=== PATIENT | female | born 1955 | race Caucasian/White ===

== ENCOUNTER 2019-07-06 09:43 | Outpatient (CLI) | payer OTHER, SELFPAY ==
[2019-07-06 10:16] LABS: Alanine Aminotransferase 27 U/L (4-35); Albumin Level 4.5 g/dL (3.5-5.1); Alkaline Phosphatase 62 U/L (38-126); Aspartate Amino Transferase 30 U/L (14-36); Bilirubin,Total 0.6 mg/dL (0.2-1.3); Blood Urea Nitrogen 17 mg/dL (7-17); Calcium 9.7 mg/dL (8.4-10.2); Carbon Dioxide 30 mmol/L (22-30); Chloride 98 mmol/L (98-107); Cholesterol 190 mg/dL (0-200); Estimated Glomerular Filt Rate > 60; Glucose 95 mg/dL (65-105); HDL Direct 64 mg/dL; Potassium 4.1 mmol/L (3.4-5.0); Sodium 139 mmol/L (137-145); Triglycerides 80 mg/dL (<150)
[2019-07-06 10:27] LABS: LDL Cholesterol Direct 98 mg/dL
[2019-07-06 10:46] LABS: Thyroid Stimulating Hormone 0.654 uIU/mL (0.465-4.680)
[2019-07-06 11:10] LABS: Vitamin D 25 Hydroxy 36.1 ng/mL
== END 2019-07-06 09:44 | disposition home or self-care (01) ==
PROVIDERS: PCP Internal Medicine; Visit Provider Internal Medicine
DX: E78.2 Mixed hyperlipidemia (principal); E03.9 Hypothyroidism, unspecified; E55.9 Vitamin D deficiency, unspecified
CPT/HCPCS: 36415; 80053; 80061; 82306; 84443

== ENCOUNTER 2019-11-14 13:02 | Outpatient (CLI) | payer OTHER, SELFPAY ==
--- NOTE | ~2019-11-14 | MM_ITS ---
EXAMINATION: MM screening david BI w alvin HISTORY: Screening mammogram TECHNIQUE: Craniocaudal and mediolateral oblique 3-D tomosynthesis images were obtained and synthetic 2-D images were generated. CAD analysis was submitted and interpreted. COMPARISON: 10/03/2018, 10/09/2017, 09/24/2016 bilateral digital screening mammogram examinations BREAST PARENCHYMAL COMPOSITION: There are scattered areas of fibroglandular density. FINDINGS: There is no evidence of suspicious mass, calcification, or architectural distortion to sugg est malignancy in either breast. There has been no suspicious interval change. IMPRESSION: 1. No mammographic evidence of malignancy. 2. Recommend routine screening mammography in one year. BI-RADS Category 1: Negative Reviewed, dictated and finalized at location A.
--- NOTE | ~2019-11-14 | DEXA_ITS ---
Bone Density Report Name: Patricia Olson Age: 64 Sex: Female Ethnicity: White Date of : 1955 Indication: postmenopausal; height loss; cancer; Referring Provider: PHYSICIAN NOT ON STAFF Study: Bone densitometry was performed. Exam Date: November 14, 2019 Accession number: [id number] Bone Density: Region BMD T-score Z-score Classification AP Spine (L1-L4) 0.791 -2.3 -0.5 Osteopenia Femoral Neck (Left) 0.650 -1.8 -0.3 Osteopenia Total Hip (Left) 0.831 -0.9 0.3 Normal Total Hip Bilateral Avg 0.842 -0.8 0.4 Normal Femoral Neck (Right) 0.652 -1.8 -0.2 Osteopenia Total Hip (Right) 0.852 -0.7 0.5 Normal World Health Organization criteria for BMD impression classify patients as: Normal (T-score at or above -1.0), Osteopenia (T-score between -1.0 and -2.5), or Osteoporosis (T-score at or below -2.5). 10-year Fracture Risk: FRAX not reported because: Treated for osteoporosis Clinical Information Provided by Patient: Is being treated for osteoporosis Has used the following medications: Fosamax (i.e. alendronate), Vitamin D, Calcium Has the following medical conditions: Cancer Patient maximum height was 63.5 Menopause Age: 49 Onset of menses at age 12 Number of children 0 Impression: The patient has low bone mass, based on the Total Spine T-score. Discussion: It is important to ask patients whether they are taking their medications and to encourage continued and appropriate compliance with their osteoporosis therapies to reduce fracture risk. It is also important to review their risk factors and encourage appropriate calcium and vitamin D intakes, exercise, fall prevention and other lifestyle measures. Follow-Up: Consider a repeat BMD and Vertebral Fracture Assessment (VFA) exam in 2 years or sooner if medically necessary, to reassess this patient's status. Reported by: ARA on 11/14/2019 1:36:00 PM. Reviewed, dictated and finalized at location ATuyet FRAZIER
== END 2019-11-14 13:03 | disposition home or self-care (01) ==
PROVIDERS: PCP Internal Medicine
DX: E28.39 Other primary ovarian failure (principal); Z12.31 Encounter for screening mammogram for malignant neoplasm of breast; M85.89 Other specified disorders of bone density and structure, multiple sites
CPT/HCPCS: 77063; 77067; 77080

== ENCOUNTER 2020-02-23 01:17 | Outpatient (CLI) | payer OTHER, SELFPAY ==
[2020-02-23 16:30] LABS: SARS-CoV-2 RNA PCR Negative
== END 2020-02-23 01:18 | disposition home or self-care (01) ==
PROVIDERS: PCP Internal Medicine; Visit Provider Internal Medicine Gastroenterology
DX: Z01.812 Encounter for preprocedural laboratory examination (principal); Z20.828 Contact with and (suspected) exposure to other viral communicable diseases
CPT/HCPCS: 87635; C9803; U0003

== ENCOUNTER 2020-02-26 01:34 | Day surgery (SDC) | payer OTHER, SELFPAY ==
[2020-02-15 14:27] VITALS: BMI 28.0
[2020-02-26 10:18] VITALS: BP 143/88; PULSE 83; RESP 20; TEMP 36.6; O2SAT 100
[2020-02-26] MEDS: LACTATED RINGERS 1,000 ML 150 ML IV CONT (10:26)
--- NOTE | 2020-02-26 10:47 | WPDANESEPPF ---
Anes - Initial Pre Proc Eval Procedure: Operation Date: 02/26/20 11:30 Proposed Procedures p Screening Colonoscopy - Sebas Santos DO Date/Time: 02/26/20 10:47 Surgeon: Sebas Santos DO Pre Op Diagnosis: Neoplasm Screening Patient Data Age: 64 Gender: F Height: 5 ft 3 in Weight: 70.3 kg Last Vital Signs Temp 97.8 F 02/26/20 10:18 Pulse 83 02/26/20 10:18 Resp 20 02/26/20 10:18 BP 143/88 H 02/26/20 10:18 Pulse Ox 100 02/26/20 10:18 Allergies Allergy/AdvReac Type Severity Reaction Status Date / Time No Known Allergies Allergy Unknown Verified 02/26/20 10:17 Home Medications Medication Instructions Recorded Confirmed Type Lacto.acidophilus-Bif.animalis 10 1 cap PO DAILY 07/05/19 02/15/20 History billion cell capsule calcium carbonate 500 mg calcium 500 mg PO DAILY 07/05/19 02/15/20 History (1,250 mg) capsule cholecalciferol (vitamin D3) 125 5,000 unit PO DAILY 07/05/19 02/15/20 History mcg (5,000 unit) capsule omega-3 fatty acids 1,000 mg 1,000 mg PO BID 07/05/19 02/15/20 History capsule levothyroxine 88 mcg tablet 88 mcg PO DAILY #90 tablet 12/05/19 02/15/20 Rx rosuvastatin 10 mg tablet 10 mg PO .COMPLEX #75 tablet 12/05/19 02/15/20 Rx Patient hx anesthesia problems: none Family hx anesthesia problems: none PMFSH Past Medical History Medical History (Updated 02/26/20 @ 10:46 by Moise Heath MD) Acquired hypothyroidism Hx of bronchogenic malignancy Mixed hyperlipidemia Premature ventricular contraction Family History Family History (Updated 09/12/18 @ 14:53 by DOCTOR UNKNOWN) Grandparent Family history of rheumatoid arthritis Family history of malignant neoplasm of breast Father Hypertension Sibling Carcinoma of colon Social History Social History Smoking status: Never smoker Alcohol intake: never Substance use type: does not use Living arrangements: alone Gender identity (if verbalized by the patient): Female Spiritual care concerns: No Anes - Eval Final PreProcedure Day of Procedure 02/26/20 10:47 Patient weight: normal Heart: regular rate and rhythm Lungs: clear to auscultation Airway: Mallampati scale class II Neurological: alert and oriented Last oral intake: >/= 8 hours ASA classification: III Emergent: no Anesthetic plan: proceed Anesthesia type and monitoring: general GIVS and standard monitoring Informed Consent: The patient's anesthetic plan and its attendant risks and benefits were discussed with the patient/family/POA. Questions were solicited and answers provided to the satisfaction of the patient/family/POA.
--- NOTE | 2020-02-26 11:33 | P.HP_ITS ---
H&P: HPI History of Present Illness Date/Time: 02/26/20 11:33 Chief complaint: Neoplasm Screening Narrative: Reason for visit colonoscopy. This very pleasant lady seen in consultation request of the primary physician. Impression: Screening and surveillance colonoscopy. The patient's history adenomatous colon polyps and a family history of colorectal cancer. Dyslipidemia. Hypothyroidism. History of carcinoid lung cancer status post pneumonectomy. Recommendation: Colonoscopy. History: This very pleasant lady's here for screening colonoscopy. She has history adenomatous colon polyps and family history colorectal cancer. GI review syst ems is negative. Physical examination: General: very pleasant patient in no acute distress. HEENT: Head was normocephalic sclerae is clear mouth without masses neck was supple. Heart: Rate rhythm regular without S3 or S4. Lungs: CTA. Abdomen: Soft with no guarding or rigidity. Bowel sounds were active. Neurologic: Cranial nerves 2 through 12 intact. No focal defects. No clonus. Musculoskeletal system: Revealed no joint tenderness or swelling no muscle atrophy. Extremities: Reveal no significant edema. Skin: Warm and dry with normal turgor. Mental status: intact. Patient is alert and oriented. Review of Systems Review of Systems: All systems reviewed & are unremarkable except as noted in HPI and below PMFSH Past Medical History Medical History (Updated 02/26/20 @ 10:46 by Moise Heath MD) Acquired hypothyroidism Hx of bronchogenic malignancy Mixed hyperlipidemia Premature ventricular contraction Family History Family History (Updated 09/12/18 @ 14:53 by DOCTOR UNKNOWN) Grandparent Family history of rheumatoid arthritis Family history of malignant neoplasm of breast Father Hypertension Sibling Carcinoma of colon Social History Social History Smoking status: Never smoker Alcohol intake: never Substance use type: does not use Living arrangements: alone Gender identity (if verbalized by the patient): Female Spiritual care concerns: No Meds Home Medications and Allergies Home Medications Medication Instructions Recorded Confirmed Type Lacto.acidophilus-Bif.animalis 10 1 cap PO DAILY 07/05/19 02/15/20 History billion cell capsule calcium carbonate 500 mg calcium 500 mg PO DAILY 07/05/19 02/15/20 History (1,250 mg) capsule cholecalciferol (vitamin D3) 125 5,000 unit PO DAILY 07/05/19 02/15/20 History mcg (5,000 unit) capsule omega-3 fatty acids 1,000 mg 1,000 mg PO BID 07/05/19 02/15/20 History capsule levothyroxine 88 mcg tablet 88 mcg PO DAILY #90 tablet 12/05/19 02/15/20 Rx rosuvastatin 10 mg tablet 10 mg PO .COMPLEX #75 tablet 12/05/19 02/15/20 Rx Allergies Allergy/AdvReac Type Severity Reaction Status Date / Time No Known Allergies Allergy Unknown Verified 02/26/20 10:17 Vital Signs Vital Signs - 24 hr 02/26/20 10:18 Temperature 36.6 C Pulse Rate 83 Respiratory Rate 20 Blood Pressure 143/88 H Pulse Oximetry 100
[2020-02-26 11:54] VITALS: BP 96/62; PULSE 66; RESP 17; O2SAT 97
[2020-02-26 12:04] VITALS: BP 117/66; PULSE 62; RESP 21; O2SAT 98
[2020-02-26 12:14] VITALS: BP 116/77; PULSE 57; RESP 12; O2SAT 100
== END 2020-02-26 12:30 | disposition home or self-care (01) ==
PROVIDERS: PCP Internal Medicine; Visit Provider Internal Medicine Gastroenterology
PROC: 0DJD8ZZ Inspection of Lower Intestinal Tract, Via Natural or Artificial Opening Endoscopic (ICD-10-PCS; CPT 45378; principal; 2020-02-26 11:30)
DX: Z12.11 Encounter for screening for malignant neoplasm of colon (principal); K63.5 Polyp of colon; K64.8 Other hemorrhoids; Z80.0 Family history of malignant neoplasm of digestive organs; E78.2 Mixed hyperlipidemia; E03.9 Hypothyroidism, unspecified; I49.3 Ventricular premature depolarization; Z85.118 Personal history of other malignant neoplasm of bronchus and lung; Z90.2 Acquired absence of lung [part of]
CPT/HCPCS: 45380; 88305; J2704; J7120

== ENCOUNTER 2020-06-20 11:52 | Outpatient (CLI) | payer MEDICARE, SELFPAY ==
[2020-06-20 12:10] LABS: Basophils Percent Auto 0.5 % (0.2-1.2); Eosinophils Absolute Auto 0.2 K/mm3 (0-0.3); Eosinophils Percent Auto 2.9 % (0-4.4); Hematocrit 43.5 % (37.0-47.0); Hemoglobin 14.3 g/dL (12.0-15.0); Immature Granulocyte Absolute 0.02 K/mm3 (0.00-0.031); Immature Granulocyte Percent A 0.3 % (0-0.5); Lymphocytes Absolute Auto 2.34 K/mm3 (0.9-3.2); Lymphocytes Percent Auto 37.8 % (18.3-44.2); Mean Corpuscular HGB Conc 32.9 g/dl (32-36); Mean Corpuscular Hemoglobin 30.6 pg (26-34); Mean Corpuscular Volume 93.1 fl (80-100); Mean Platelet Volume 10.6 fl (7.4-10.4); Monocytes Absolute Auto 0.4 K/mm3 (0.1-0.6); Monocytes Percent Auto 6.1 % (2.6-8.5); Neutrophils Absolute Auto 3.2 K/mm3 (1.3-6.7); Neutrophils Percent Auto 52.4 % (45.5-73.1); Platelet Count Result 214 k/mm3 (150-375); Red Blood Count 4.67 M/mm3 (4.2-5.4); Red Cell Distribution Width 12.3 % (11.5-14.5); White Blood Count 6.2 K/mm3 (4.5-10.0)
[2020-06-20 12:26] LABS: Alanine Aminotransferase 34 U/L (4-35); Albumin Level 4.4 g/dL (3.5-5.1); Alkaline Phosphatase 63 U/L (38-126); Anion Gap 4 mmol/L (8-16); Aspartate Amino Transferase 38 U/L (14-36); Bilirubin,Total 0.6 mg/dL (0.2-1.3); Blood Urea Nitrogen 16 mg/dL (7-17); Calcium 9.5 mg/dL (8.4-10.2); Carbon Dioxide 31 mmol/L (22-30); Chloride 101 mmol/L (98-107); Cholesterol 184 mg/dL (0-200); Estimated Glomerular Filt Rate > 60; Glucose 83 mg/dL (65-105); HDL Direct 57 mg/dL; Potassium 4.3 mmol/L (3.4-5.0); Sodium 136 mmol/L (137-145); Triglycerides 109 mg/dL (<150)
[2020-06-20 12:37] LABS: LDL Cholesterol Direct 93 mg/dL
[2020-06-20 12:55] LABS: Thyroid Stimulating Hormone 0.814 uIU/mL (0.465-4.680)
[2020-06-20 13:06] LABS: Vitamin D 25 Hydroxy 45.1 ng/mL
== END 2020-06-20 11:53 | disposition home or self-care (01) ==
PROVIDERS: Family Provider Internal Medicine; PCP Internal Medicine; Visit Provider Internal Medicine
DX: E03.9 Hypothyroidism, unspecified (principal); E55.9 Vitamin D deficiency, unspecified; E78.2 Mixed hyperlipidemia; I49.3 Ventricular premature depolarization
CPT/HCPCS: 36415; 80053; 80061; 82306; 84443; 85025

== ENCOUNTER 2020-11-15 09:59 | Outpatient (CLI) | payer MEDICARE, SELFPAY ==
--- NOTE | ~2020-11-15 | MM_ITS ---
EXAMINATION: MM screening david BI w alvin HISTORY: Screening mammogram TECHNIQUE: Craniocaudal and mediolateral oblique 3-D tomosynthesis images were obtained and synthetic 2-D images were generated. CAD analysis was submitted and interpreted. COMPARISON: 11/14/2019, 10/03/2018, 09/29/2017 bilateral digital screening mammogram examinations BREAST PARENCHYMAL COMPOSITION: There are scattered areas of fibroglandular density. FINDINGS: There is no evidence of suspicious mass, calcification, or architectural distortion to sugg est malignancy in either breast. There has been no suspicious interval change. IMPRESSION: 1. No mammographic evidence of malignancy. 2. Recommend routine screening mammography in one year. BI-RADS Category 1: Negative Reviewed, dictated and finalized at location A.
== END 2020-11-15 10:00 | disposition home or self-care (01) ==
LOC: ANHIMG 10:02
PROVIDERS: PCP Internal Medicine; Visit Provider Internal Medicine
DX: Z12.31 Encounter for screening mammogram for malignant neoplasm of breast (principal)
CPT/HCPCS: 77063; 77067

== ENCOUNTER → 2020-12-10 10:41 | Outpatient (REF) | payer MEDICARE, SELFPAY | LOC: ANHLAB 10:41 | PROVIDERS: PCP Internal Medicine; Visit Provider Nurse Practitioner | DX: D49.2 Neoplasm of unspecified behavior of bone, soft tissue, and skin (principal) | CPT/HCPCS: 88305; 88342 ==

== ENCOUNTER 2021-06-14 10:49 | Outpatient (CLI) | payer MEDICARE, SELFPAY ==
[2021-06-14 11:13] LABS: Basophils Absolute Auto 0.1 K/mm3 (0.0-0.1); Basophils Percent Auto 0.7 % (0.2-1.2); Eosinophils Absolute Auto 0.2 K/mm3 (0-0.3); Eosinophils Percent Auto 3.3 % (0-4.4); Hematocrit 42.6 % (37.0-47.0); Hemoglobin 13.7 g/dL (12.0-15.0); Immature Granulocyte Absolute 0.02 K/mm3 (0.00-0.031); Immature Granulocyte Percent A 0.3 % (0-0.5); Lymphocytes Absolute Auto 2.24 K/mm3 (0.9-3.2); Lymphocytes Percent Auto 32.2 % (18.3-44.2); Mean Corpuscular HGB Conc 32.2 g/dl (32-36); Mean Corpuscular Hemoglobin 30.5 pg (26-34); Mean Corpuscular Volume 94.9 fl (80-100); Mean Platelet Volume 11.2 fl (7.4-10.4); Monocytes Absolute Auto 0.5 K/mm3 (0.1-0.6); Monocytes Percent Auto 6.9 % (2.6-8.5); Neutrophils Absolute Auto 3.9 K/mm3 (1.3-6.7); Neutrophils Percent Auto 56.6 % (45.5-73.1); Platelet Count Result 220 k/mm3 (150-375); Red Blood Count 4.49 M/mm3 (4.2-5.4)
[2021-06-14 11:20] LABS: Alanine Aminotransferase 32 U/L (4-35); Albumin Level 4.6 g/dL (3.5-5.1); Alkaline Phosphatase 62 U/L (38-126); Anion Gap 6 mmol/L (8-16); Aspartate Amino Transferase 34 U/L (14-36); Bilirubin,Total 0.6 mg/dL (0.2-1.3); Blood Urea Nitrogen 15 mg/dL (7-17); Calcium 9.5 mg/dL (8.4-10.2); Carbon Dioxide 29 mmol/L (22-30); Chloride 104 mmol/L (98-107); Cholesterol 195 mg/dL (0-200); Estimated Glomerular Filt Rate > 60; Glucose 92 mg/dL (65-110); HDL Direct 69 mg/dL; Potassium 4.2 mmol/L (3.4-5.0); Sodium 139 mmol/L (137-145); Triglycerides 60 mg/dL (<150)
[2021-06-14 11:21] LABS: Add Urine Microscopic? NO; Appearance Urine Clear (Clear); Bilirubin Urine Negative (Negative); Blood Urine Negative (Negative); Color Urine Colorless (Yellow); Glucose Urine UA Negative (Negative); Ketones Urine Negative (Negative); Leukocyte Esterase Ur Negative LEU/UL (NEGATIVE); Nitrate Urine Negative (Negative); Protein Urine Negative (Negative); Urobilinogen Urine Negative mg/dL (<2.0)
[2021-06-14 11:22] LABS: Specific Grav Ur 1.004 (1.001-1.035)
[2021-06-14 11:31] LABS: LDL Cholesterol Direct 97 mg/dL
[2021-06-14 12:26] LABS: Vitamin D 25 Hydroxy 54.2 ng/mL
== END 2021-06-14 10:50 | disposition home or self-care (01) ==
PROVIDERS: PCP Internal Medicine; Visit Provider Internal Medicine
DX: E03.9 Hypothyroidism, unspecified (principal); E78.2 Mixed hyperlipidemia; E55.9 Vitamin D deficiency, unspecified
CPT/HCPCS: 36415; 80053; 80061; 81003; 82306; 84443; 85025

== ENCOUNTER 2021-12-24 14:19 | Outpatient (CLI) | payer MEDICARE, SELFPAY ==
--- NOTE | ~2021-12-24 | DEXA_ITS ---
Bone Density Report Name: JAVIER TSE I Age: 66 Sex: Female Ethnicity: White Date of : 1955 Indication: osteopenia; height loss; postmenopausal Referring Provider: UNKNOWN, UNKNOWN Study: Bone densitometry was performed. Exam Date: December 24, 2021 Accession number: [id number] Bone Density: Region BMD T-score Z-score Classification AP Spine(L1-L4) 0.821 -2.1 -0.1 Osteopenia Femoral Neck (Left) 0.635 -1.9 -0.3 Osteopenia Total Hip (Left) 0.827 -0.9 0.4 Normal Femoral Neck (Right) 0.688 -1.4 0.2 Osteopenia Total Hip (Right) 0.837 -0.9 0.5 Normal Total Hip Mean 0.832 -0.9 0.5 Normal World Health Organization criteria for BMD impression classify patients as: Normal (T-score at or above -1.0), Osteopenia (T-score between -1.0 and -2.5), or Osteoporosis (T-score at or below -2.5). 10-year Fracture Risk(1): Major Osteoporotic Fracture 11% Hip Fracture 1.7% Reported Risk Factors: [place] (), Neck BMD=0.635, BMI=28.4 (1) FRAX(R) Version 3.08. Fracture probability calculated for an untreated patient. Fracture probability may be lower if the patient has received treatment. Previous Exams: Region Exam Age BMD T-score BMD Change BMD Change Date g/cm2 vs Baseline vs Previous AP Spine (L1-L4) 12/24/2021 66 0.821 -2.1 0.030 (3.8%)* 0.030 (3.8%)* 11/14/2019 64 0.791 -2.3 Total Hip(Left) 12/24/2021 66 0.827 -0.9 -0.004 (-0.5%) -0.004 (-0.5%) 11/14/2019 64 0.831 -0.9 Total Hip(Right) 12/24/2021 66 0.837 -0.9 -0.014 (-1.7%) -0.014 (-1.7%) 11/14/2019 64 0.852 -0.7 *Denotes significance at 95% confidence level, LSC for AP Spine = 0.022 g/cm2, LSC for Total Hip = 0.027 g/cm2 Clinical Information Provided by Patient: Has used the following medications: Fosamax (i.e. alendronate) Patient maximum height was 64 Menopause Age: 49 Onset of menses at age 12 Number of children 0 Impression: The patient has low bone mass, based on the Total Spine T-score. The patient has an estimated ten-year risk of hip fracture of 1.7% and an estimated ten-year risk of major fracture of 11%, based on the WHO FRAX algorithm. No significant bone loss was observed. Discussion: BONE DENSITY IS LOW AT ONE OR MORE SKELETAL SITES. This patient's lowest T-score is low at one or more skeletal sites. It meets the World Health Organization's (WHO) criteria for ?low bone mass? (T-score between -1.0 and -2.5). The patient's
--- NOTE | ~2021-12-24 | MM_ITS ---
EXAMINATION: MM screening david BI w alvin HISTORY: Screening TECHNIQUE: Craniocaudal and mediolateral oblique 3-D tomosynthesis images were obtained and synthetic 2-D images were generated. CAD analysis was submitted and interpreted. COMPARISON: Comparison to multiple prior studies sequentially, with oldest reviewed study dated 09/16. BREAST PARENCHYMAL COMPOSITION: There are scattered areas of fibroglandular density. FINDINGS: There is no evidence of suspicious mass, calcification, or architectural distortion to sugg est malignancy in either breast. There has been no suspicious interval change. IMPRESSION: 1. No mammographic evidence of malignancy. 2. Recommend routine screening mammography in one year. BI-RADS Category 1: Negative Reviewed, dictated and finalized at location A.
== END 2021-12-24 14:20 | disposition home or self-care (01) ==
PROVIDERS: PCP Family Medicine
DX: Z12.31 Encounter for screening mammogram for malignant neoplasm of breast (principal); Z78.0 Asymptomatic menopausal state; M85.89 Other specified disorders of bone density and structure, multiple sites
CPT/HCPCS: 77063; 77067; 77080

== ENCOUNTER 2022-06-29 08:43 | Outpatient (CLI) | payer MEDICARE, SELFPAY ==
[2022-06-29 09:59] LABS: Basophils Absolute Auto 0.1 K/mm3 (0.0-0.1); Basophils Percent Auto 0.9 % (0.2-1.2); Eosinophils Absolute Auto 0.2 K/mm3 (0-0.3); Eosinophils Percent Auto 4.2 % (0-4.4); Hematocrit 44.9 % (37.0-47.0); Hemoglobin 14.3 g/dL (12.0-15.0); Immature Granulocyte Absolute 0.02 K/mm3 (0.00-0.031); Immature Granulocyte Percent A 0.4 % (0-0.5); Lymphocytes Absolute Auto 1.91 K/mm3 (0.9-3.2); Lymphocytes Percent Auto 34.5 % (18.3-44.2); Mean Corpuscular HGB Conc 31.8 g/dl (32-36); Mean Corpuscular Hemoglobin 30.4 pg (26-34); Mean Corpuscular Volume 95.5 fl (80-100); Mean Platelet Volume 11.1 fl (7.4-10.4); Monocytes Absolute Auto 0.3 K/mm3 (0.1-0.6); Monocytes Percent Auto 5.6 % (2.6-8.5); Neutrophils Percent Auto 54.4 % (45.5-73.1); Platelet Count Result 250 k/mm3 (150-375); Red Cell Distribution Width 13.2 % (11.5-14.5); White Blood Count 5.5 K/mm3 (4.5-10.0)
[2022-06-29 10:17] LABS: Alanine Aminotransferase 38 U/L (6-35); Albumin Level 4.3 g/dL (3.5-5.1); Alkaline Phosphatase 64 U/L (38-126); Anion Gap 5 mmol/L (8-16); Aspartate Amino Transferase 38 U/L (14-36); Bilirubin,Total 0.4 mg/dL (0.2-1.3); Blood Urea Nitrogen 13 mg/dL (7-17); Carbon Dioxide 32 mmol/L (22-30); Chloride 104 mmol/L (98-107); Cholesterol 198 mg/dL (0-200); Estimated Glomerular Filt Rate > 60; Glucose 95 mg/dL (65-110); HDL Direct 59 mg/dL; Potassium 4.1 mmol/L (3.4-5.0); Sodium 141 mmol/L (137-145); Triglycerides 77 mg/dL (<150)
[2022-06-29 10:29] LABS: LDL Cholesterol Direct 94 mg/dL
[2022-06-29 10:35] LABS: Vitamin D 25 Hydroxy 54.8 ng/mL
== END 2022-06-29 08:44 | disposition home or self-care (01) ==
LOC: ANHLAB 08:44
PROVIDERS: PCP Family Medicine; Visit Provider Nurse Practitioner
DX: E03.9 Hypothyroidism, unspecified (principal); E55.9 Vitamin D deficiency, unspecified; E78.2 Mixed hyperlipidemia; Z13.29 Encounter for screening for other suspected endocrine disorder
CPT/HCPCS: 36415; 80053; 80061; 82306; 84443; 85025

== ENCOUNTER 2022-08-25 08:28 | Outpatient (CLI) | payer MEDICARE, SELFPAY ==
--- NOTE | 2022-09-15 15:25 | WPDSLEEPSTUD ---
Sleep Study Date of Study: 08/25/22 Ordering Provider: Rhea Cotter DO Interpreting Physician: Rhea Cotter DO Sleep Study Type: Split Polysomnogram Height: 1.57 m Weight: 66.678 kg Body Mass Index: 26.9 Neck Circumference (inches): 14.5 [place]: 11 Reason for Sleep Study Sleep-maintenance insomnia, daytime hypersomnia Sleep History The patient is a 67-year-old female with hypertension, hypothyroidism, hyperlipidemia, PVCs, history of bronchogenic malignancy and insomnia that had a sleep study ordered for evaluation of sleep apnea. The patient denies awakening from sleep short of breath. She rarely awakens at night with heartburn, belching or cough. She occasionally snores. She occasionally has trouble sleeping when she has a cold. She denies waking up gasping for air throughout the night. She rarely has breathing problems at night observed by herself or others. He rarely sweats excessively at night. She denies having heart palpitations or irregular heartbeats during the night. She occasionally falls asleep during the day but never while driving. She denies cataplexy. She rarely has trouble at school or work due to sleepiness. She rarely feels unable to move while waking up or falling asleep. She occasionally experiences vivid dreamlike scenes upon awakening or falling asleep. She denies feeling afraid going to sleep. She rarely has nightmares. She rarely remembers her dreams. She occasionally has thoughts racing through her mind. She occasionally feels sad or depressed. She occasionally has anxiety. She occasionally has muscular tension. She occasionally notices parts of her body jerk. She occasionally has crawling and aching feelings in her legs and occasionally has leg pain during the night. She denies grinding her teeth during sleep and denies awakening with morning jaw pain. She is occasionally bothered by pain during the day and occasionally awakened by pain during the night. She frequently wakes up feeling stiff in the morning. She occasionally wakes up with sore or achy muscles. She occasionally wakes up with pain in the neck, spine or other joints. She goes to bed between 10 30-11 p.m. on both weekdays and weekends. It can take her anywhere from 30 minutes to a few hours to fall asleep. She wakes up 1-3 times throughout the night for unknown reasons. It can take her 1-2 hours to fall back asleep. She wakes up between 530-6 a.m. on both weekdays and weekends. She will stay in bed for 30 minutes after waking up in the morning. She currently lives alone. She does not consume any caffeinated beverages within 2 hours of bedtime. She does not engage in physical exercise before bedtime. She will read before falling asleep. She denies taking naps in the afternoon or the evening. She does not consume any caffeinated beverages throughout the day. She denies tobacco, alcohol and recreational drug use. [facility] Past Medical History Medical History Acquired hypothyroidism Hx of bronchogenic malignancy Mixed hyperlipidemia Premature ventricular contraction Surgical History Surgical History History of carpal tunnel release Hx of tonsillectomy S/P cubital tunnel release Family History Family History Grandparent Family history of rheumatoid arthritis Family history of malignant neoplasm of breast Father Hypertension Sibling Carcinoma of colon Thyroid disorder Mother Thyroid disorder Social History Social History Smoking status: Never smoker Alcohol intake: never Substance use: never Substance use type: does not use Lack of Transportation: No Lack of Food: Never True Current Housing: I Have Housing Concerned About Future Housing: No Difficulty
[2022-09-15 15:38] VITALS: BMI 26.9
== END 2022-08-26 05:48 | disposition home or self-care (01) ==
LOC: ANHCSM 08:29
PROVIDERS: PCP Family Medicine; Visit Provider Family Medicine
DX: G47.33 Obstructive sleep apnea (adult) (pediatric) (principal); G47.10 Hypersomnia, unspecified
CPT/HCPCS: 95811

== ENCOUNTER 2022-10-30 15:25 | Outpatient (CLI) | payer MEDICARE, SELFPAY | END 2022-10-30 15:26 | disposition home or self-care (01) | PROVIDERS: PCP Family Medicine; Visit Provider Family Medicine | DX: D64.9 Anemia, unspecified (principal) | CPT/HCPCS: 36415; 82728 ==

== ENCOUNTER 2023-01-22 08:47 | Outpatient (CLI) | payer MEDICARE, SELFPAY ==
--- NOTE | ~2023-01-22 | MM_ITS ---
EXAMINATION: MM screening [facility] BI w alvin HISTORY: Screening mammogram TECHNIQUE: Craniocaudal and mediolateral oblique 3-D tomosynthesis images were obtained and synthetic 2-D images were generated. CAD analysis was submitted and interpreted. COMPARISON: 12/24/2021, 11/15/2020, 11/14/2019 BREAST PARENCHYMAL COMPOSITION: There are scattered areas of fibroglandular density. FINDINGS: No suspicious mass, calcification, or architectural distortion are identified in either arsalan ast to suggest malignancy. There has been no suspicious interval change. IMPRESSION: 1. No mammographic evidence of malignancy. 2. Recommend routine screening mammography in one year. BI-RADS Category 1: Negative Reviewed, dictated and finalized at location B.
== END 2023-01-22 08:48 | disposition home or self-care (01) ==
LOC: ANHIMG 08:50
PROVIDERS: PCP Family Medicine
DX: Z12.31 Encounter for screening mammogram for malignant neoplasm of breast (principal)
CPT/HCPCS: 77063; 77067

== ENCOUNTER 2023-05-10 07:49 | Outpatient (CLI) | payer MEDICARE, SELFPAY ==
[2023-05-10 08:17] LABS: Basophils Percent Auto 0.6 % (0.2-1.2); Eosinophils Absolute Auto 0.3 K/mm3 (0-0.3); Eosinophils Percent Auto 5.3 % (0-4.4); Hemoglobin 13.4 g/dL (12.0-15.0); Immature Granulocyte Absolute 0.03 K/mm3 (0.00-0.031); Immature Granulocyte Percent A 0.5 % (0-0.5); Lymphocytes Absolute Auto 2.61 K/mm3 (0.9-3.2); Lymphocytes Percent Auto 40.7 % (18.3-44.2); Mean Corpuscular HGB Conc 31.9 g/dl (32-36); Mean Corpuscular Hemoglobin 30.2 pg (26-34); Mean Corpuscular Volume 94.8 fl (80-100); Mean Platelet Volume 10.7 fl (7.4-10.4); Monocytes Absolute Auto 0.5 K/mm3 (0.1-0.6); Monocytes Percent Auto 7.5 % (2.6-8.5); Neutrophils Absolute Auto 2.9 K/mm3 (1.3-6.7); Neutrophils Percent Auto 45.4 % (45.5-73.1); Platelet Count Result 234 k/mm3 (150-375); Red Blood Count 4.43 M/mm3 (4.2-5.4); Red Cell Distribution Width 12.6 % (11.5-14.5); White Blood Count 6.4 K/mm3 (4.5-10.0)
[2023-05-10 08:33] LABS: Alanine Aminotransferase 27 U/L (6-35); Albumin Level 4.3 g/dL (3.5-5.1); Alkaline Phosphatase 59 U/L (38-126); Anion Gap 7 mmol/L (8-16); Aspartate Amino Transferase 28 U/L (14-36); Bilirubin,Total 0.4 mg/dL (0.2-1.3); Blood Urea Nitrogen 17 mg/dL (7-17); Calcium 9.4 mg/dL (8.4-10.2); Carbon Dioxide 28 mmol/L (22-30); Chloride 104 mmol/L (98-107); Cholesterol 195 mg/dL (0-200); Estimated Glomerular Filt Rate > 60; Glucose 96 mg/dL (65-110); HDL Direct 61 mg/dL; Potassium 4.4 mmol/L (3.4-5.0); Sodium 139 mmol/L (137-145); Triglycerides 94 mg/dL (<150)
[2023-05-10 08:44] LABS: LDL Cholesterol Direct 95 mg/dL
[2023-05-10 08:59] LABS: Thyroid Stimulating Hormone 0.261 uIU/mL (0.465-4.680)
[2023-05-10 09:31] LABS: Free T4 Free Thyroxine 1.69 ng/mL (0.78-2.19)
[2023-05-10 10:20] LABS: Hemoglobin A1C 5.6 % (<5.7)
== END 2023-05-10 07:50 | disposition home or self-care (01) ==
LOC: ANHLAB 07:51
PROVIDERS: PCP Family Medicine; Visit Provider Family Medicine
DX: R73.9 Hyperglycemia, unspecified (principal); I49.3 Ventricular premature depolarization; E03.9 Hypothyroidism, unspecified; E78.2 Mixed hyperlipidemia; I10 Essential (primary) hypertension
CPT/HCPCS: 36415; 80053; 80061; 83036; 84439; 84443; 85025

== ENCOUNTER 2023-07-28 14:19 | Outpatient (CLI) | payer MEDICARE, SELFPAY ==
[2023-07-28 15:21] LABS: Thyroid Stimulating Hormone 0.178 uIU/mL (0.465-4.680)
[2023-07-28 16:20] LABS: Free T4 Free Thyroxine 1.19 ng/mL (0.78-2.19)
== END 2023-07-28 14:20 | disposition home or self-care (01) ==
LOC: ANHLAB 14:20
PROVIDERS: PCP Family Medicine; Visit Provider Family Medicine
DX: E03.9 Hypothyroidism, unspecified (principal); I10 Essential (primary) hypertension
CPT/HCPCS: 36415; 84439; 84443

== ENCOUNTER 2023-10-01 17:56 | Emergency (ER) | payer MEDICARE, SELFPAY ==
--- NOTE | ~2023-10-01 | CT_ITS ---
EXAMINATION: CT cervical spine wo con DATE: 10/01/2023 19:14 INDICATION: Neck pain post head injury TECHNIQUE: Computed tomography (CT) of the cervical spine was performed without intravenous contrast. Automated exposure control and iterative reconstruction technique were employed. The dose-length pro duct was 480.72 mGy-cm. COMPARISON: None FINDINGS: Straightening of the normal cervical lordosis which is likely positional related to the presence of a cervical collar. Vertebral body heights are normal. No fracture. Severe disc height loss with degene rative endplate changes at C3-C4, C5-C6, C6-C7 and C7-T1. Moderate disc height loss at C4-C5 and mild disc height loss at C2-C3. Multinodular goiter with a couple subcentimeter rim calcified thyroid nod ules in both the left and right. Cervical soft tissues are otherwise unremarkable. Postoperative stacy ge of prior left pneumonectomy with leftward shift of the heart and mediastinum into the left hemitho rax and compensatory hyperexpansion of the visualized right lung. The following disc levels are speci fically discussed: C2-C3: The disc does not extend beyond the endplate margin. There is mild bilateral uncovertebral sabi nt osteoarthritis. There is mild left and severe right facet joint osteoarthritis. There is mild righ t neural foraminal stenosis. There is no central canal stenosis. C3-C4: Posterior disc osteophyte complex. There is severe bilateral uncovertebral joint osteoarthriti s. There is moderate right and mild left facet joint osteoarthritis. There is moderate bilateral neur al foraminal stenosis. There is mild central canal stenosis. C4-C5: Disc is mildly bulging. There is mild bilateral uncovertebral joint osteoarthritis. There is m ild bilateral facet joint osteoarthritis. There is mild left neural foraminal stenosis. There is mini mal central canal stenosis. C5-C6: Posterior disc osteophyte complex. There is severe bilateral uncovertebral joint osteoarthriti s. There is mild bilateral facet joint osteoarthritis. There is mild right and moderate left neural f oraminal stenosis. There is mild central canal stenosis. C6-C7: Disc osteophyte complex. There is severe bilateral uncovertebral joint osteoarthritis. There i s mild bilateral facet joint osteoarthritis. There is mild to moderate right and moderate left neural foraminal stenosis. There is mild central canal stenosis. C7-T1: Posterior disc osteophyte complex. There is moderate left and severe right uncovertebral joint osteoarthritis. There is mild bilateral facet joint osteoarthritis. There is mild to moderate bilate ral neural foraminal stenosis. There is mild central canal stenosis. IMPRESSION: 1. Severe cervical spondylosis. No acute osseous abnormality. 2. Postoperative change of prior left pneumonectomy. 3. Multinodular goiter with a few likely benign subcentimeter rim calcified thyroid nodules. Reviewed, dictated and finalized at location A. IMPRESSION: 1. Severe cervical spondylosis. No acute osseous abnormality. 2. Postoperative change of prior left pneumonectomy. 3. Multinodular goiter with a few likely benign subcentimeter rim calcified thy roid nodules.
--- NOTE | ~2023-10-01 | CT_ITS ---
EXAMINATION: CT brain wo con DATE: 10/01/2023 19:14 INDICATION: Fall with posterior head injury with scalp laceration TECHNIQUE: Computed tomography (CT) of the head was performed without intravenous contrast. Sagittal and coronal reconstructions were performed. The mA was adjusted according to patient size. Iterative reconstruction technique was employed. The dose-length product was 605.33 mGy-cm. COMPARISON: head CT dated FINDINGS: The right parietal scalp hematoma and laceration with skin scarlett. No fracture. No acute intracrania l hemorrhage, acute infarction or abnormal extra axial fluid collection. There is mild scattered whit e matter hypoattenuation consistent with chronic small vessel ischemic disease. Ventricles are akiko l and symmetric. No mass/mass effect. Small mucous retention cyst at the right maxillary sinus. The o rbits and mastoid air cells are normal. IMPRESSION: 1. Right parietal scalp hematoma and laceration. No fracture or acute intracranial process. 2. Mild scattered white matter hypoattenuation consistent with chronic small vessel ischemic disease. Reviewed, dictated and finalized at location A. IMPRESSION: 1. Right parietal scalp hematoma and laceration. No fracture or acute intracran ial process. 2. Mild scattered white matter hypoattenuation consistent with chronic small ve ssel ischemic disease.
--- NOTE | ~2023-10-01 | XR_ITS ---
EXAMINATION: XR shoulder RT min 2V DATE: 10/01/2023 19:27 INDICATION: Right shoulder pain post fall TECHNIQUE: AP internally and externally rotated, AP oblique externally rotated and transscapular Y vi ews of the right shoulder were obtained. COMPARISON: None FINDINGS: Normal alignment. No fracture. Glenohumeral joint is normal. Mild right acromioclavicular osteoarthr itis. Visualized portions of the lungs are clear. Soft tissues are unremarkable. Moderate thoracic sp ondylosis. IMPRESSION: Mild right acromioclavicular osteoarthritis. No acute osseous abnormality. Reviewed, dictated and finalized at location A.
--- NOTE | ~2023-10-01 | XR_ITS ---
EXAMINATION: XR chest 2V DATE: 10/01/2023 19:27 INDICATION: Shortness of breath TECHNIQUE: frontal and lateral views of the chest were obtained. COMPARISON: Chest radiograph dated 02/16/[address] dated 01/14/17 FINDINGS: Again seen are changes of prior left pneumonectomy with suture line at the left hilum and leftward sh ift of the heart and mediastinum. There is prominent compensatory hyperexpansion of the right lung wh ich extends across the midline into the left hemithorax. Unchanged opacities at the inferolateral lef t hemithorax likely representing a combination of elevation the left hemidiaphragm as well as small a mount of fluid in the pneumonectomy space as seen on prior CT. No airspace opacities or pulmonary adrian ma in the right lung. No pneumothorax or right-sided pleural effusion. Moderate thoracic spondylosis. Chronic mild anterior wedging at T12 and L1. IMPRESSION: 1. Stable appearance of postoperative changes of prior left pneumonectomy with compensatory hyperexpa nsion of the right lung. No acute cardiopulmonary disease. Reviewed, dictated and finalized at location A. IMPRESSION: 1. Stable appearance of postoperative changes of prior left pneumonectomy with compensatory hyperexpansion of the right lung. No acute cardiopulmonary disease .
[2023-10-01 18:38] VITALS: BP 142/93; PULSE 81; RESP 20; TEMP 36.4; O2SAT 99
--- NOTE | 2023-10-01 18:51 | ED.FALL ---
HPI - Fall General Chief Complaint: Fall <VIRGIL Blackwood Last Filed: 10/04/23 09:14> Stated Complaint: fall <VIRGIL Blackwood Last Filed: 10/04/23 09:14> Time Seen by Provider: 10/01/23 18:45 <VIRGIL Blackwood Last Filed: 10/04/23 09:14> Focused HPI: Patient is a 68 y/o female who presents to the ED with c/o syncope. Patient reports she was walking in the park today when she had a split second of dizziness. She then passed out. She woke up on the concrete past during over the trees. She is unsure how long she was out for. She does history of vertigo, but states she is typically able to tell when it is coming on and is able to steady herself. Has not had a severe episode of vertigo in several years. Sustained a contusion /laceration to her posterior scalp. Also complains of pain to her neck and right shoulder. Also reports current nausea. Denies chest pain or shortness of breath. Denies current dizziness, Vision changes, focal weakness or numbness. GENERAL: Well-appearing, well-nourished, and in no acute distress. HEAD: Normocephalic. Contusion/hematoma to posterior scalp with small laceration in center. Skin macerated and thin. EYES: PERRL/EOMI NECK: TTP over lower midline spine, R paraspinal musculature. CHEST: Clear to auscultation. ?No respiratory distress. HEART: Regular rate and rhythm.? MSK: No significant tenderness throughout the thoracic or lumbar midline spine. Tenderness over posterior right shoulder. NEURO: ?Alert and oriented x3. No focal deficits. Patient screened in triage and initial orders placed.? ?Additional care and disposition to be based upon?diagnostic testing and treatment. <VIRGIL Blackwood Filed: 10/04/23 09:14> Source: patient <VIRGIL Blackwood Filed: 10/04/23 09:14> Mode of arrival: ambulatory <VIRGIL Blackwood Filed: 10/04/23 09:14> Limitations: no limitations <Laury Manzano PA-C - Last Filed: 10/04/23 09:14> Related Data Home Medications: Home Medications Medication Instructions Recorded Confirmed omega-3 fatty acids 1,000 mg 1,000 mg PO BID 07/05/19 08/09/23 capsule (Fish Oil Concentrate) Lactobacillus 1 cap PO .four times a week 07/01/20 08/09/23 acidophilus-Bifidobac.animalis 10 billion cell capsule (Digestive Probiotic) cholecalciferol (vitamin D3) 125 15,000 unit PO .twice a week 07/01/20 08/09/23 mcg (5,000 unit) capsule loratadine 10 mg tablet (Claritin) 10 mg PO DAILY PRN allergic 03/04/22 08/09/23 symptoms nutritional supplement-fiber oral 1 ea PO DAILY 03/04/22 08/09/23 liquid zinc 50 mg tablet 50 mg PO 4XW 03/04/22 08/09/23 Calcium Citrate 650 mg PO 05/27/23 08/09/23 <VIRGIL Blackwood Last Filed: 10/04/23 09:14> Allergies/Adverse Reactions: Allergies Allergy/AdvReac Type Severity Reaction Status Date / Time No Known Allergies Allergy Unknown Verified 08/09/23 16:32 <Laury Manzano PA-C - Last Filed: 10/04/23 09:14> [facility] Past Medical History Medical History: Medical History Acquired hypothyroidism Hx of bronchogenic malignancy Mixed hyperlipidemia Premature ventricular contraction <Laury Manzano PA-C - Last Filed: 10/04/23 09:14> Surgical History Surgical History: Surgical History History of carpal tunnel release Hx of tonsillectomy S/P cubital tunnel release <Laury Manzano PA-C - Last Filed: 10/04/23 09:14> Family History Family History: Family History Grandparent Family history of rheumatoid arthritis Family history of malignant neoplasm of breast Father Hypertension Sibling Carcinoma of colon Thyroid disorder Mother Thyroid disorder <Laury Segundo
[2023-10-01] MEDS: SODIUM CHLORIDE 0.9% IV 1,000 ML 999 ML IV CONT (20:43)
[2023-10-01] MEDS: ONDANSETRON INJ 4 MG/2 ML VIAL IV PUSH (20:44)
[2023-10-01] MEDS: TETANUS,DIPHTHERIA,AC PERTUSSIS ADULT (0.5 ML) BOOSTRIX IM (20:44)
[2023-10-01 20:53] LABS: Basophils Percent Auto 0.3 % (0.2-1.2); Eosinophils Percent Auto 0.1 % (0-4.4); Hematocrit 44.5 % (37.0-47.0); Hemoglobin 14.5 g/dL (12.0-15.0); Immature Granulocyte Absolute 0.05 K/mm3 (0.00-0.031); Immature Granulocyte Percent A 0.4 % (0-0.5); Lymphocytes Absolute Auto 1.02 K/mm3 (0.9-3.2); Lymphocytes Percent Auto 8.1 % (18.3-44.2); Mean Corpuscular HGB Conc 32.6 g/dl (32-36); Mean Corpuscular Hemoglobin 30.4 pg (26-34); Mean Corpuscular Volume 93.3 fl (80-100); Mean Platelet Volume 11.3 fl (7.4-10.4); Monocytes Absolute Auto 0.4 K/mm3 (0.1-0.6); Neutrophils Absolute Auto 11.1 K/mm3 (1.3-6.7); Neutrophils Percent Auto 88.1 % (45.5-73.1); Platelet Count Result 227 k/mm3 (150-375); Red Blood Count 4.77 M/mm3 (4.2-5.4); Red Cell Distribution Width 13.3 % (11.5-14.5); White Blood Count 12.6 K/mm3 (4.5-10.0)
[2023-10-01 21:03] LABS: Alanine Aminotransferase 34 U/L (6-35); Albumin Level 4.9 g/dL (3.5-5.1); Alkaline Phosphatase 63 U/L (38-126); Anion Gap 8 mmol/L (4-12); Aspartate Amino Transferase 32 U/L (14-36); Bilirubin,Total 0.6 mg/dL (0.2-1.3); Blood Urea Nitrogen 18 mg/dL (7-17); Calcium 10.2 mg/dL (8.4-10.2); Carbon Dioxide 25 mmol/L (22-30); Chloride 104 mmol/L (98-107); Estimated CRCL calculation 61 ml/min; Estimated Glomerular Filt Rate > 60; Glucose 102 mg/dL (65-110); INR 0.9; Magnesium 2.1 mg/dL (1.6-2.3); Prothrombin Time 12.7 Seconds (11.1-14.7); Sodium 137 mmol/L (137-145)
[2023-10-01 21:04] LABS: Partial Thromboplastin Time 25.8 Seconds (22.3-36.8)
[2023-10-01 21:14] LABS: Troponin I < 0.012 ng/mL (0.000-0.034)
[2023-10-01 21:43] VITALS: BP 137/74; PULSE 78; RESP 18; O2SAT 100
== END 2023-10-01 21:45 | disposition home or self-care (01) ==
PROVIDERS: Physician Assistant; Emergency Provider Emergency Medicine; PCP Family Medicine
DX: S01.01XA Laceration without foreign body of scalp, initial encounter (principal); Z23 Encounter for immunization; R42 Dizziness and giddiness; E03.9 Hypothyroidism, unspecified; E78.2 Mixed hyperlipidemia; Z85.118 Personal history of other malignant neoplasm of bronchus and lung; M19.011 Primary osteoarthritis, right shoulder; E04.2 Nontoxic multinodular goiter; M47.812 Spondylosis without myelopathy or radiculopathy, cervical region; Z90.2 Acquired absence of lung [part of]; W18.39XA Other fall on same level, initial encounter
CPT/HCPCS: 12001; 36415; 70450; 71046; 72125; 73030; 80053; 83735; 84484; 85025; 85610; 85730; 90471; 90715; 96361; 96374; 99284; J2405; J7030

== ENCOUNTER 2023-10-20 10:55 | Outpatient (CLI) | payer MEDICARE, SELFPAY ==
[2023-10-20 13:07] LABS: Free T4 Free Thyroxine 0.86 ng/mL (0.78-2.19)
== END 2023-10-20 10:56 | disposition home or self-care (01) ==
LOC: ANHLAB 10:58
PROVIDERS: PCP Family Medicine; Visit Provider Family Medicine
DX: E03.9 Hypothyroidism, unspecified (principal); I10 Essential (primary) hypertension
CPT/HCPCS: 36415; 84439; 84443

== ENCOUNTER 2023-11-22 12:44 | Outpatient (CLI) | payer MEDICARE, SELFPAY ==
--- NOTE | 2023-11-22 12:55 | ECHO_ITS ---
Patient Info Name: Patricia Olson Age: 68 years : 1955 Gender: Female Ht: 62 in Wt: 158 lbs BSA: 1.79 m2 HR: 66 bpm BP: 133 / 95 mmHg Heart Rhythm: Sinus Rhythm Technical Quality: Fair Exam Date: 11/22/2023 1:01 PM Exam Location: Echo Lab Patient Status: Outpatient Admit Date: 11/22/2023 Staff Ordering Physician: Rhea Cotter DO Topography Technician: Aletha Samuel RDCS Attending Provider: Rhea Cotter DO Referring Physician: Vahe MARTINEZ; Exam Type: CA echo doppler color flow Study Info Indications R55 - Syncope and collapse Complete two-dimensional, color flow and Doppler transthoracic echocardiogram is performed. Summary 1. Complete two-dimensional, color flow and Doppler transthoracic echocardiogram is performed. 2. Left ventricular chamber dimension is normal. 3. Left ventricular systolic function is normal, estimated at 60-65%. 4. The left ventricular diastolic function is grade I diastolic dysfunction. 5. E/e' 13 is mildly elevated. Left Ventricle E/e' 13 is mildly elevated. Left ventricular chamber dimension is normal. Left ventricular systolic function is normal, estimated at 60-65%. The left ventricular diastolic function is grade I diastolic dysfunction. Right Ventricle Right ventricular systolic function is normal and with normal TAPSE 2.3 cm. Right ventricular chamber dimension is normal. Left Atria Left atrial chamber dimension is normal. Right Atria Right atrial chamber dimension is normal. Aortic Valve The aortic valve is trileaflet. There is no aortic valve stenosis. There is no aortic valve regurgitation. Pulmonic Valve There is no pulmonic regurgitation. Mitral Valve There is no mitral valve stenosis. There is no mitral valve regurgitation. Tricuspid Valve There is no tricuspid valve regurgitation. Pericardium/Pleural There is no pericardial effusion. Inferior Vena Cava Normal inferior vena cava with >50% collapse upon inspiration consistent with normal right atrial pressure, 5 mmHg. Aorta The aortic root size at the sinus of Valsalva is normal. Left Ventricular Outflow Tract Name Value Normal LVOT Doppler LVOT Peak Gradient 3 mmHg LVOT Mean Gradient 2 mmHg LVOT VTI 16 cm LVOT VTI/AV VTI Ratio 0.8 Mitral Valve Name Value Normal MV Doppler MV Decel Refugio 349 cm/s2 MV PHT 50 ms MV Area (PHT) 4.4 cm2 4.0-5.0 MV Diastolic Function MV E Peak Velocity 60 cm/s MV A Peak Velocity 79 cm/s MV E/A 0.8 MV Decel Time 171 ms MV Annular TDI MV E/e' (Septal) 16.1 <=8.0 MV E/e' (Lateral)
== END 2023-11-22 12:45 | disposition home or self-care (01) ==
PROVIDERS: PCP Family Medicine; Visit Provider Family Medicine
DX: I49.3 Ventricular premature depolarization (principal)
CPT/HCPCS: 93306

== ENCOUNTER 2023-12-21 12:53 | Outpatient (CLI) | payer MEDICARE, SELFPAY ==
--- NOTE | ~2023-12-21 | US_ITS ---
EXAMINATION: US carotid duplex BI DATE: 12/21/2023 13:14 INDICATION: Syncope. Collapse. TECHNIQUE: Grayscale, color Doppler, and pulsed Doppler images of the cervical carotid arteries were obtained. The degree of vessel stenosis is placed in one of the following categories: normal, <50%, 5 0-69%, >=70% but less than near-occlusion, near-occlusion, or total occlusion. Note that percent sten osis relative to normal distal artery lumen diameter is indirectly measured from velocity measurement s as described by Norman, et al. Radiology 2003; 229:340-346. Notes: Normal: Peak systolic velocity <125 centimeters/sec and no plaque <50%. Peak systolic velocity <125 ( EDV <40; ICA/CCA PSV ratio <2.0; used these factors only a tandem lesions or low cardiac output or co ntralateral disease) 50-69 %: PSV 125-230 (EDV 40-100; ratio 2-4) >= 70% but less than near occlusion: PSV greater than 230 (EDV > 100; ratio> 4.0) Near Occlusion: PSV that is variable; markedly narrowed lumen Occlusion: Absent flow on color/spectral Doppler and no lumen on castaneda scale. COMPARISON: None. FINDINGS: RIGHT: The right common carotid artery (CCA) peak systolic velocity (PSV) is 100 cm/s. The right internal ca rotid artery (ICA) PSV is 69 cm/s. The right ICA end-diastolic velocity (EDV) is 33 cm/s. The right I CA/CCA PSV ratio is 0.7. The external carotid artery (ECA) PSV is 85 cm/s. There is antegrade flow in the right vertebral artery. LEFT: The left CCA PSV is 89 cm/s. The left ICA PSV is 60 cm/s. The left ICA EDV is 30 cm/s. The left ICA/C CA PSV ratio is 0.7. The ECA PSV is 53 cm/s. There is antegrade flow in the left vertebral artery. IMPRESSION: 1. Less than 50% stenosis in the right internal carotid artery by sonographic criteria. 2. Less than 50% stenosis in the left internal carotid artery by sonographic criteria. Reviewed, dictated and finalized at location B. IMPRESSION: 1. Less than 50% stenosis in the right internal carotid artery by sonographic c nina. 2. Less than 50% stenosis in the left internal carotid artery by sonographic cr liberty.
== END 2023-12-21 12:54 | disposition home or self-care (01) ==
PROVIDERS: PCP Family Medicine; Visit Provider Family Medicine
DX: R55 Syncope and collapse (principal); I65.23 Occlusion and stenosis of bilateral carotid arteries
CPT/HCPCS: 93880

== ENCOUNTER 2024-01-26 08:38 | Outpatient (CLI) | payer MEDICARE, SELFPAY ==
--- NOTE | ~2024-01-26 | DEXA_ITS ---
Bone Density Report Name: JAVIER TSE I Age: 68 Sex: Female Ethnicity: White Date of : 1955 Indication: postmenopausal; screening for osteoporosis; height loss; cancer; Referring Provider: UNKNOWN, UNKNOWN Study: Bone densitometry was performed. Exam Date: January 26, 2024 Accession number: [id number] Bone Density: Region BMD T-score Z-score Classification AP Spine(L1-L4) 0.785 -2.4 -0.3 Osteopenia Femoral Neck (Left) 0.665 -1.7 0.1 Osteopenia Total Hip (Left) 0.810 -1.1 0.4 Osteopenia Femoral Neck (Right) 0.645 -1.8 -0.1 Osteopenia Total Hip (Right) 0.836 -0.9 0.6 Normal Total Hip Mean 0.823 -1.0 0.5 Normal World Health Organization criteria for BMD impression classify patients as: Normal (T-score at or above -1.0), Osteopenia (T-score between -1.0 and -2.5), or Osteoporosis (T-score at or below -2.5). 10-year Fracture Risk(1): Major Osteoporotic Fracture 11% Hip Fracture 1.8% Reported Risk Factors: [place] (), Neck BMD=0.645, BMI=29.4 (1) FRAX(R) Version 3.08. Fracture probability calculated for an untreated patient. Fracture probability may be lower if the patient has received treatment. Clinical Information Provided by Patient: Has used the following medications: Vitamin D, Calcium Has the following medical conditions: Cancer Patient maximum height was 64 Menopause Age: 49 Onset of menses at age 12 Number of children 0 Impression: The patient has low bone mass, based on the Total Spine T-score. The patient has an estimated ten-year risk of hip fracture of 1.8% and an estimated ten-year risk of major fracture of 11%, based on the WHO FRAX algorithm. Discussion: BONE DENSITY IS LOW AT ONE OR MORE SKELETAL SITES. This patient's lowest T-score is low at one or more skeletal sites. It meets the World Health Organization's (WHO) criteria for ?low bone mass? (T-score between -1.0 and -2.5). The patient's 10-year risk of fracture as calculated by FRAX is less than the threshold where pharmacological therapy is recommended by the National Osteoporosis Foundation (NOF). However, all treatment decisions require clinical judgment and consideration of individual patient factors, including patient preferences, comorbidities, previous drug use, risk factors not captured in the FRAX model (e.g., frailty, falls, vitamin D deficiency, increased bone turnover, interval significant decline in bone density) and possible under or overestimation of fracture risk by FRAX. The patient should follow a healthful lifestyle (good nutrition with adequate calcium and vitamin D, and appropriate weight-bearing exercise). Follow-Up: Consider repeating this study in 2 to 3 years to reassess this patient's status, or sooner if there is some new clinical indication. Reported by: DAX
--- NOTE | ~2024-01-26 | MM_ITS ---
EXAMINATION: MM screening david BI w alvin HISTORY: Screening TECHNIQUE: Craniocaudal and mediolateral oblique 3-D tomosynthesis images were obtained and synthetic 2-D images were generated. CAD analysis was submitted and interpreted. COMPARISON: Comparison to multiple prior studies sequentially, with oldest reviewed study dated 01/2018. BREAST PARENCHYMAL COMPOSITION: Not dense: There are scattered areas of fibroglandular density. FINDINGS: The right breast is stable without evidence for malignancy. There is asymmetric soft tissue in the upper outer quadrant of the left breast which appears slightly increased with altered morphol ogy compared with prior examination. IMPRESSION: 1. Subtle changes in left breast content in the upper outer quadrant, middle third compared with prio r studies. 2. Additional mammographic views and possible breast ultrasound are recommended. BI-RADS Category 0: Incomplete: Needs additional imaging evaluation. Reviewed, dictated and finalized at location B. IMPRESSION: 1. Subtle changes in left breast content in the upper outer quadrant, middle th ird compared with prior studies. 2. Additional mammographic views and possible breast ultrasound are recommended . BI-RADS Category 0: Incomplete: Needs additional imaging evaluation.
== END 2024-01-26 08:39 | disposition home or self-care (01) ==
PROVIDERS: PCP Family Medicine
DX: Z12.31 Encounter for screening mammogram for malignant neoplasm of breast (principal); M81.0 Age-related osteoporosis without current pathological fracture; R92.8 Other abnormal and inconclusive findings on diagnostic imaging of breast; M85.88 Other specified disorders of bone density and structure, other site; M85.852 Other specified disorders of bone density and structure, left thigh; M85.851 Other specified disorders of bone density and structure, right thigh
CPT/HCPCS: 77063; 77067; 77080

== ENCOUNTER 2024-02-24 11:19 | Outpatient (CLI) | payer MEDICARE, SELFPAY ==
--- NOTE | ~2024-02-24 | MMUS_ITS ---
EXAMINATION: MM diagnostic david LT w alvin, US breast LT limited HISTORY: Follow-up left breast asymmetry TECHNIQUE: Additional 3-D tomosynthesis images of the left breast were performed and synthetic 2-D im ages were generated. CAD analysis was submitted and interpreted. High resolution Limited left breast ultrasound was performed. COMPARISON: Comparison to multiple prior studies sequentially, with oldest reviewed study dated 10/03. BREAST PARENCHYMAL COMPOSITION: Not dense: There are scattered areas of fibroglandular density. FINDINGS: MAMMOGRAPHIC FINDINGS: There are no suspicious masses, calcifications or architectural distortion in the left breast to sugg est malignancy. ULTRASOUND: Limited left breast ultrasound: At 2:00, 10 cm from the nipple there is a normal 8 mm intramammary ly mph node. No suspicious sonographic abnormalities to suggest malignancy. IMPRESSION: 1. No evidence for malignancy in the left breast. 2. Routine yearly screening mammogram and regular clinical breast examination are recommended. BI-RADS Category 2: Benign finding(s). Reviewed, dictated and finalized at location B. IMPRESSION: 1. No evidence for malignancy in the left breast. 2. Routine yearly screening mammogram and regular clinical breast examination a re recommended. BI-RADS Category 2: Benign finding(s).
== END 2024-02-24 11:20 | disposition home or self-care (01) ==
LOC: ANHIMG 11:21
PROVIDERS: PCP Family Medicine
DX: R92.8 Other abnormal and inconclusive findings on diagnostic imaging of breast (principal)
CPT/HCPCS: 76642; 77061; 77065; G0279

== ENCOUNTER 2024-04-26 09:48 | Outpatient (CLI) | payer MEDICARE, SELFPAY ==
[2024-04-26 11:00] LABS: Thyroid Stimulating Hormone 0.318 uIU/mL (0.465-4.680)
[2024-04-26 11:20] LABS: Free T4 Free Thyroxine 1.39 ng/dL (0.78-2.19)
== END 2024-04-26 09:49 | disposition home or self-care (01) ==
PROVIDERS: PCP Family Medicine; Visit Provider Family Medicine
DX: E03.9 Hypothyroidism, unspecified (principal)
CPT/HCPCS: 36415; 84439; 84443

== ENCOUNTER 2024-05-05 07:40 | Outpatient (CLI) | payer MEDICARE, SELFPAY ==
[2024-05-05 08:39] LABS: Alanine Aminotransferase 20 U/L (6-35); Albumin Level 4.2 g/dL (3.5-5.1); Alkaline Phosphatase 59 U/L (38-126); Anion Gap 4 mmol/L (4-12); Aspartate Amino Transferase 27 U/L (14-36); Bilirubin,Total 0.7 mg/dL (0.2-1.3); Blood Urea Nitrogen 16 mg/dL (7-17); Calcium 9.5 mg/dL (8.4-10.2); Carbon Dioxide 31 mmol/L (22-30); Chloride 103 mmol/L (98-107); Cholesterol 203 mg/dL (0-200); Estimated Glomerular Filt Rate > 60; Glucose 99 mg/dL (65-110); HDL Direct 60 mg/dL; Potassium 4.2 mmol/L (3.4-5.0); Sodium 138 mmol/L (137-145); Triglycerides 148 mg/dL (<150)
[2024-05-05 08:50] LABS: LDL Cholesterol Direct 81 mg/dL
[2024-05-05 09:08] LABS: Thyroid Stimulating Hormone 0.558 uIU/mL (0.465-4.680)
[2024-05-05 09:17] LABS: Basophils Percent Auto 0.6 % (0.2-1.2); Eosinophils Absolute Auto 0.3 K/mm3 (0-0.3); Eosinophils Percent Auto 5.2 % (0-4.4); Hematocrit 43.5 % (37.0-47.0); Hemoglobin 13.6 g/dL (12.0-15.0); Immature Granulocyte Absolute 0.02 K/mm3 (0.00-0.031); Immature Granulocyte Percent A 0.4 % (0-0.5); Lymphocytes Absolute Auto 2.02 K/mm3 (0.9-3.2); Lymphocytes Percent Auto 37.6 % (18.3-44.2); Mean Corpuscular HGB Conc 31.3 g/dl (32-36); Mean Corpuscular Hemoglobin 29.5 pg (26-34); Mean Corpuscular Volume 94.4 fl (80-100); Mean Platelet Volume 11.2 fl (7.4-10.4); Monocytes Absolute Auto 0.4 K/mm3 (0.1-0.6); Monocytes Percent Auto 7.6 % (2.6-8.5); Neutrophils Absolute Auto 2.6 K/mm3 (1.3-6.7); Neutrophils Percent Auto 48.6 % (45.5-73.1); Platelet Count Result 246 k/mm3 (150-375); Red Blood Count 4.61 M/mm3 (4.2-5.4); Red Cell Distribution Width 13.1 % (11.5-14.5); White Blood Count 5.4 K/mm3 (4.5-10.0)
[2024-05-05 10:43] LABS: Free T4 Free Thyroxine 1.48 ng/dL (0.78-2.19); Vitamin D 25 Hydroxy 51.7 ng/mL
== END 2024-05-05 07:41 | disposition home or self-care (01) ==
PROVIDERS: PCP Clinical Nurse Specialist; Visit Provider Clinical Nurse Specialist
DX: E78.2 Mixed hyperlipidemia (principal); Z13.29 Encounter for screening for other suspected endocrine disorder; Z13.228 Encounter for screening for other metabolic disorders; I49.3 Ventricular premature depolarization; E03.9 Hypothyroidism, unspecified; E04.2 Nontoxic multinodular goiter; E55.9 Vitamin D deficiency, unspecified; I10 Essential (primary) hypertension
CPT/HCPCS: 36415; 80053; 80061; 82306; 84439; 84443; 85025

== ENCOUNTER 2024-10-25 07:38 | Outpatient (CLI) | payer MEDICARE, SELFPAY ==
--- OUTSIDE RECORDS SUMMARY | 2024-10-25 07:41 | XMS_ITS | Continuity of Care Document ---
Author Organization [facility] Address [address] [place] [address] [address] [place] [address] Phone Care Team Providers Care Utility Locate Technician Name Role Phone Maryuri Albert Unavailable Unavailable Procedures Procedure Date Removal Of Chalazion Office/outpatient Visit, Est Advance Directives Directive Yes / No Effective Date File Name No Information Encounters Encounter Description Practice Location Reason(s) For Visit Diagnoses Date Provider Providers Copied on Encounter [facility], [address] [place] [address] [address], [place], [place], [id number], tel:[phone] [facility] No Information 9 Albert Maryuri. [address] , [address], [place], [place], [facility], [place]. tel:[phone] Office/outpat ient Visit, Est [facility], [address] [place] [address] [address], [place], [place], [id number], tel:[phone] [facility] No Information [address] Sebas. [address] , [address], [place], [address], [place]. tel:[phone] Family History Family Member Type Diagnosis Age At Onset No Information Payers Payer name Insurance type Covered republican ID Authoriza tion(s) No Information Social History Type Description Quantity Date Captured Comments Sex Female Smoking Status No Information Chief Complaint And Reason For Visit No Information Reason For Referral Reason For Referral No Information History Of Present Illness Encounter Date Complaint History Of Prese nt Illness No Information Functional Status Date Functional Assessmen t No Information Instructions Date Instruction Additional Infor mation No Information Assessments Type Assessment Date No Information Patient Care Teams Name Effective Dates (start - stop) Status Members No Information
--- OUTSIDE RECORDS SUMMARY | 2024-10-25 07:41 | XMS_ITS | Clinical Summary ---
Author Organization [facility] Address [address] [address] Phone Care Team Providers Care Stemming Machine Operator Name Role Phone Ryan Low MD Primary Care Provider [phone] Social History Tobacco Use Types Packs/Day Years Used Date Smoking Tobacco: Never Assessed Comments Unknown Sex and Gender Information Value Date Recorded Sex Assigned at Not on file Legal Sex Female 12:39 AM CDT Gender Identity Not on file Sexual Orientation Not on file Plan of Treatment Health Maintenance Due Date Last Done Comments DEXA Bone Density 1955 Hepatitis C Virus (HCV) Screening 1955 TdaP Immunization 1955 Cologuard 2004 Immunochemical Fecal Occult Blood 2004 Mammogram 2004 Pneumococcal Immunization (5 0+ years) (1 of 1 - PCV) 2004 Zoster Immunization (1 of 2) 2004 Influenza Immunization (#1) 2024 SARS-COV-2 Immunization ( season) 2024 Colonoscopy 02/25/2025 02/26/2020 Colorectal Cancer Screening 02/25/2025 Respiratory Syncytial Virus (RSV) Immunization (Adult) (1 - 1-dose 75+ series) 2029 02/26/2020 Hepatitis B Immunization Aged Out No longer eligible based on patient's age to complete this topic Meningococcal Immunization (ACWY) Aged Out No longer eligible based on patient's age to complete this topic Rotavirus Immunization Aged Out No lo nger eligible based on patient's age to complete this topic Procedures Procedure Name Priority Date/Time Associated Diagnosis Comments COLONOSCOPY Routine 02/26/2020 from Last 3 Months or Most Recently Relevant to Health Maintenance Results * COLONOSCOPY (02/26/2020) Sebas Santos DO PROCEDURE/MINOR SURGICAL ORDERA BLES Final Result from Last 3 Months or Most Recently Relevant to Health Maintenance Care Teams Stemming Machine Operator Relationship Specialty Start Date End Date Ryan Low MD [address], [address] [place] [address] PCP - General Internal Medicine 07/26/19
--- OUTSIDE RECORDS SUMMARY | 2024-10-25 07:41 | XMS_ITS | Clinical Summary ---
Author Organization [facility] Address [address] Attn: Epic Prelude ADT [place]ASV[place] BRADLEY [address] Care Team Providers Care Hydrogeologist Name Role Phone Unavailable Primary Care Provider Unavailabl e Social History Tobacco Use Types Packs/Day Years Used Date Smoking Tobacco: Never Assessed Comments Unknown Sex and Gender Information Value Date Recorded Sex Assigned at Not on file Legal Sex Female 2:46 AM [employer] Gender Identity Not on file Sexual Orientation Not on file Plan of Treatment Health Maintenance Due Date Last Done Comments DTAP/TDAP/TD VACCINES (1 - Tdap) 1973 BREAST CANCER SCREENING 1994 COLORECTAL SCREENING 1999 Colorectal Cancer Screening 1999 FIT-DNA Q 3 years 1999 FIT/FOBT Q 1 year 1999 Flex Sig/CT Colonography Q 5 years 1999 PNEUMOCOCCAL VACCINE 50+ YEARS (1 of 1 - PCV) 06/20/19 05 ZOSTER VACCINE (1 of 2) 2004 OSTEOPOROSIS SCREENING 2019 INFLUENZA VACCINE (#1) 2023 RSV VACCINE (60+ or ) (1 - 1-dose 75+ series) 2029
--- OUTSIDE RECORDS SUMMARY | 2024-10-25 07:41 | XMS_ITS | Clinical Summary ---
Author Organization [facility] Address [address] [place] [address] Care Team Providers Care Aquaculturist Name Role Phone Marisel Gao MD Unavailable [phone] Sebas Santos DO Unavailable [phone] Rhea Cotter DO Primary Care Provider [phone] Source Comments [facility],non-owned Affiliates and Associated Physician Practices is amultiple site organization consisting of ambulatory clinics and hospital sitesin [place], [place] and [place]. This disclosure is being madepursuant to the Care Everywhere program and may not contain all information available regarding this patient. Last updated 18.[facility] Allergies No known active allergies Medications * Be aware that medications may not be up to date on this document. Alwaysverify current medications with the patient. rosuvastatin (CRESTOR) 10 MG tablet Take 1 (one) tablet by mouth once daily 5 times weekly Active Jackson-3 Fatty Acids (FISH OIL DOUBLE STRENGTH) 1200 MG CAPS Take by mouth 2 times daily. Active CALCIUM + D PO Take by mouth once daily Active JUICE PLUS FIBRE PO Take by mouth once daily Active Probiotic Product (PROBIOTIC DAILY) CAPS Take 1 (one) capsule by mouth 4 days per week Active levothyroxine (SYNTHROID) 88 MCG tablet Take 1 (one) tablet by mouth daily before breakfast Active Multiple Vitamins-Minera ls (ZINC PO) Active vitamin D (CHOLECACIFEROL ) 125 MCG (5000 UT) capsule Take 6 (six) capsules by mouth every 7 days Active Loratadine 10 MG Active lisinopril (Prinivil; Zestril) 10 MG tablet Active Magnesium 400 MG Active Active Problems Problem Noted Date Diagnosed Date Essential (primary) hypertension 04/23/2023 Osteoporosis 01/06/2011 Overview (02/03/2024): 2008: T=-2.1 2010: T=-2.3 03/31/2013: T=-2.8, Normal labs. Fosamax started 03/2013. 05/13/2015: T=-2.1, improved. Continue Fosamax. Repeat DXA 04/201707/01/2017: T=-1.6; sig improvement in spine. Stop fosamax 06/2017. 11/14/19: T=-2.3 (different machine, spine). FRAX negative, no risk factors. Repeat DXA in 2 years. 02/03/2024: T=-2.4. Hip = -1.8, FRAX negative, no risk factors. Repeat DXA in 2 years. Hearing loss 10/22/2008 Overview (12/03/2008): left Hypothyroidism Dyslipidemia Insomnia Hypovitaminosis D Overview (03/31/2013): 2013: Vitamin d = 37 Immunizations Immunization Administration Dates Next Due INFLUENZA VACCINE 02/22/2016,02/21/2015,02/22/20 14 TDAP (7yrs+) 06/24/2014 Family History Medical History Relation Name Comments Other Brother 1 Avtar MVA 03/2023 Thyroid Disease Brother 1 Avtar Cancer - Colon Brother 2 Suicide Brother 2 CAD (Coronary Artery Disease) Father Hypercholesterolemia Father Hypercholesterolemia Mother Osteoporosis Mother NO hip fracture Thyroid Disease Mother Cancer - Breast Paternal Grandmother Relation Name Status Comments Brother 1 Avtar Brother 2 Father [place] Mother back surgery Paternal Grandmother Sister Alive Social History Tobacco Use Types Packs/Day Years Used Date Smoking Tobacco: Never Smokeless Tobacco: Never Tobacco Cessation:Counseling Given: Yes Alcohol Use Standard Drinks/Week Comments Yes 0 (1 standard drink = 0.6 oz pur e alcohol) 5 drinks per YEAR AUDIT-C Answer Date Recorded Q1: How often do you have a drink containing alc ohol? 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 Not on file Not on file Not on fi le Last Filed Vital Signs Vital Sign Reading Time Taken Comments Blood Pressure 114/76 04/23/2023 12:11 PM REAL ESTATE PROFESSOR Pulse - - Temperature - - Respiratory Rate - - Oxygen Saturation - - Inhaled Oxygen Concentration - - Weight 69.9 kg (154 lb) 04/23/2023 12:11 PM REAL ESTATE PROFESSOR Height 157.5 cm (5' 2) 04/23/2023 12:11 PM REAL ESTATE PROFESSOR Body Mass Index 28.17 04/23/2023 12:11 PM REAL ESTATE PROFESSOR Plan of Treatment Health Maintenance Due Date Last Done Comments COLOGUARD (AGES 45-75) - COLON CA SCREENING [address] COLONOGRAPHY - COLON CA SCREENING 1955 FIT - COLON CA SCREENING 1955 FLEX SIG - COLON CA SCREENING 1955 HEPATITIS C SCREENING 06/15/1972 PNEUMOCOCCAL VACCINE 50+ (1 of 1 - PCV) 2004 ZOSTER VACCINE (1 of 2) 2004 SCREENING FOR DIABETES 04/23/2023 8 (Done Outside Per Report) COVID-19 VACCINE (1 - 2023- season) 2024 DEPRESSION SCREENING 05/24/2024 04/23/2023 MEDICARE AWV CALENDAR YEAR 2024 DTAP/TDAP/TD VACCINES (2 - Td or Tdap) 06/24/2024 06/24/2014 INFLUENZA VACCINE (Season Ended) 2025 02/22/2016, 02/21/2015, 02/21/2014 MAMMOGRAM 01/25/2025 01/26/2024, 09/0 05/2022, 12/24/2021, Additional history exists BONE DENSITY TESTING 01/25/2026 01/26/2024, 01/26/2024, 12/24/2021, Additional history exists COLONOSCOPY - COLON CA SCREENING 05/24/2028 05/24/2018 (Done Outside Per Report), 05/24/2013, 05/24/2003 Colorectal Cancer Screening 05/24/2028 Respiratory Syncytial Virus (RSV) Vaccine Pt: or over 60 yrs (1 - 1-dose 75+ series) 2029 HEPATITIS B VACCINE Aged Out No longe r eligible based on patient's age to complete this topic HIB VACCINE Aged Out No longer eligi ble based on patient's age to complete this topic HPV VACCINE Aged Out No longer eligi ble based on patient's age to complete this topic MENINGOCOCCAL (Group B) VACCINE SHARED DECISION-MAKING Aged Out No longer eligible based on patient's age to complete this topic MENINGOCOCCAL GROUPS A/C/Y/W VACCINE Aged Out No longer eligible based on patient's age to complete this topic Procedures Procedure Name Priority Date/Time Associated Diagnosis Comments DEXA BONE DENSITY 2 SITES 01/26/2024 MAMMOGRAM 01/26/2024 from Last 3 Months or Most Recently Relevant to Health Maintenance Results * MAMMOGRAM (01/26/2024) Anatomical Region Laterality Modality Other 01/26/2024 Narrative 01/26/2024 Ordered by an unspecified provider. us Scanned Document SCANNING ONLY Final Result * DEXA BONE DENSITY 2 SITES (01/26/2024) Anatomical Region Laterality Modality Other 01/26/2024 Narrative 01/26/2024 Ordered by an unspecified provider. us Scanned Document DEXA ORDERABLES Final Result from Last 3 Months or Most Recently Relevant to Health Maintenance Insurance [facility] MANAGED MEDICARE ADV [facility] MANAGED MEDICARE ADV Care Teams Aquaculturist Relationship Specialty Start Date End Date Rhea Cotter DO [address] [place] [address] PCP - General Family Medicine 04/23/23 Marisel Gao MD [address] [place] [address] Corporate Event Planner Obstetrics and Gynecology 01/06/11 Sebas Santos DO [address] [place] [address] Meeting Facilitator Gastroenterology 04/11/14
--- OUTSIDE RECORDS SUMMARY | 2024-10-25 07:41 | XMS_ITS | Encounter Summary ---
Author Organization [facility] Address [address] [place] [address] Care Team Providers Care Executive Administrator Name Role Phone Unavailable Primary Care Provider Unavailabl e Encounter Details Date Type Department Care Team (Latest Contact Info) Description 03/16/2005 Outpatient Historical HIS CARD WATER/WASTEWATER ENGINEER Alon Tellez MD [address] [facility] [address] [place] [address] CHEST PAIN NEC (Primary Dx) Social History Tobacco Use Types Packs/Day Years Used Date Smoking Tobacco: Never Assessed Comments Unknown Sex and Gender Information Value Date Recorded Sex Assigned at Not on file Legal Sex Female 2:46 AM QUANTITATIVE SOFTWARE ENGINEER Gender Identity Not on file Sexual Orientation Not on file documented as of this encounter Plan of Treatment Not on file documented as of this encounter Procedures Procedure Name Priority Date/Time Associated Diagnosis Comments CBC WITH DIFFERENTIAL Routine 03/16/2005 12:25 PM CDT CBC WITH DIFFERENTIAL Routine 03/16/2005 12:25 PM CDT PTT Routine 03/16/2005 12:25 PM CDT PROTIME-INR Routine 03/16/2005 12:25 PM CDT BASIC METABOLIC PANEL Routine 03/16/2005 12:25 PM CDT documented in this encounter Results * CBC WITH DIFFERENTIAL (03/16/2005 12:25 PM CDT) NEUTROPHILS 63 45 - 70 % INTERFAC E SYSTEM LYMPHOCYTES 28 16 - 45 % INTERFAC E SYSTEM MONOCYTES 6 3 - 13 % INTERFACE SYSTEM EOSINOPHILS 3 0 - 7 % INTERFAC E SYSTEM BASOPHILS 0 0 - 2 % INTERFACE SYSTEM NEUTROPHIL ABSOLUTE 4.56 1.90 - 7.00 K/uL INTERFACE SYSTEM LYMPHOCYTE ABSOLUTE 2.04 0.70 - 4.50 K/uL INTERFACE SYSTEM MONOCYTE ABSOLUTE 0.41 0.10 - 1.30 K/uL INTERFACE SYSTEM EOSINOPHIL ABSOLUTE 0.18 0.00 - 0.70 K/uL INTERFACE SYSTEM BASOPHILS ABSOLUTE 0.02 0.00 - 0.20 K/uL INTERFACE SYSTEM 03/16/2005 12:2 5 PM CDT Alon Mathews MD HEMATOLOGY ORDERABLES Final Result Performing Organization Address City/[facility] de Phone Number INTERFACE SYSTEM Refer to clinic/hospital department * CBC WITH DIFFERENTIAL (03/16/2005 12:25 PM CDT) WBC 7.2 4.0 - 9.8 K/uL INTERFACE SYSTEM RBC 4.71 3.90 - 4.90 M/uL INTERFACE SYSTEM HEMOGLOBIN 14.3 11.8 - 14.8 g/dL INTERFACE SYSTEM HEMATOCRIT 42.9 35.5 - 44.0 % INTERFACE SYSTEM MCV 91.1 82.0 - 99.0 fL INTERFACE SYSTEM MCH 30.4 27.2 - 32.6 pg INTERFACE SYSTEM MCHC 33.3 31.5 - 35.5 % INTERFACE SYSTEM RDW 12.9 11.5 - 14.5 % INTERFACE SYSTEM RDW-STDEV 42.7 37.1 - 48.7 fL INTERFACE SYSTEM PLATELETS 227 140 - 350 K/uL INTERFACE SYSTEM MPV 11.1 9.3 - 12.4 fL INTERFACE SYSTEM 03/16/2005 12:2 5 PM CDT Alon Mathews MD HEMATOLOGY ORDERABLES Final Result Performing Organization Address City/[facility] Co de Phone Number INTERFACE SYSTEM Refer to clinic/hospital department * PTT (03/16/2005 12:25 PM CDT) PTT 30.3 25.0 - 35.0 Seconds INTERFACE SYSTEM Comment: PTT Therapeutic Range: Heparin Level PTT (seconds) <0.10 units/mL <45 0.10 - 0.30 units/mL 45 - 65 0.30 - 0.70 units/mL* 65 - 106* 0.70 - 1.00 units/mL 106 - 137 *corresponds to therapeutic range for unfractionated heparin 03/16/2005 12:2 5 PM CDT Alon Mathews MD HEMATOLOGY ORDERABLES Final Result Performing Organization Address [facility] Phone Number INTERFACE SYSTEM Refer to clinic/hospital department * PROTIME-INR (03/16/2005 12:25 PM CDT) PROTIME 13.8 12.9 - 15.7 Seconds INTERFACE SYSTEM INR 1.0 0.9 - 1.1 INTERFACE SYSTEM Comment: INR Therapeutic Range: Adult: 2.0 - 3.0 for pulmonary embolism or prophylaxis against venous thrombosis or systemic embolization. 2.0 - 3.0 for patients with tissue heart valves. 2.5 - 3.5 for patients with mechanical heart valves or post [place]. Pediatric (12 years and under): 1.5 - 3.0 Although the target range in children is not well established , INR values of 1.5 - 3.0 are recommended for most patients. Higher values have been used in children with prosthetic cardiac valves and hereditary clotting disorders. (<3 days) therapeutic ranges have not been established. 03/16/2005 12:2 5 PM CDT Alon Mathews MD HEMATOLOGY ORDERABLES Final Result Performing Organization Address [facility] Phone Number INTERFACE SYSTEM Refer to clinic/hospital department * BASIC METABOLIC PANEL (03/16/2005 12:25 PM CDT) GLUCOSE 94 65 - 109 mg/dL INTERFACE SYSTEM CREATININE 0.8 0.4 - 1.2 mg/dL INTERFACE SYSTEM CALCIUM 9.6 8.6 - 10.2 mg/dL INTERFACE SYSTEM BUN 16 6 - 20 mg/dL INTERFACE SYSTEM SODIUM 141 135 - 145 mmol/L INTERFACE SYSTEM POTASSIUM 3.7 3.5 - 4.9 mmol/L INTERFACE SYSTEM CHLORIDE 102 96 - 108 mmol/L INTERFACE SYSTEM CO2 29 22 - 30 mmol/L INTERFACE SYSTEM 03/16/2005 12:2 5 PM CDT us Alon Mathews MD CHEMISTRY ORDERABLES Final R esult INTERFACE SYSTEM Refer to clinic/hospital department documented in this encounter Visit Diagnoses Diagnosis Other chest pain- Primary documented in this encounter
[2024-10-25 08:54] LABS: Alanine Aminotransferase 33 U/L (6-35); Albumin Level 4.5 g/dL (3.5-5.1); Alkaline Phosphatase 74 U/L (38-126); Anion Gap 6 mmol/L (4-12); Aspartate Amino Transferase 36 U/L (14-36); Bilirubin,Total 0.6 mg/dL (0.2-1.3); Blood Urea Nitrogen 19 mg/dL (7-17); Carbon Dioxide 30 mmol/L (22-30); Chloride 102 mmol/L (98-107); Estimated Glomerular Filt Rate > 60; Glucose 99 mg/dL (65-110); Potassium 4.2 mmol/L (3.4-5.0); Sodium 138 mmol/L (137-145); Total Protein 7.7 g/dL (6.3-8.2)
[2024-10-25 11:14] LABS: Free T4 Free Thyroxine 1.52 ng/dL (0.78-2.19)
== END 2024-10-25 07:39 | disposition home or self-care (01) ==
PROVIDERS: PCP Clinical Nurse Specialist; Visit Provider Clinical Nurse Specialist
DX: E03.9 Hypothyroidism, unspecified (principal); I10 Essential (primary) hypertension; E78.2 Mixed hyperlipidemia
CPT/HCPCS: 36415; 80053; 84439; 84443

== ENCOUNTER 2025-04-05 09:35 | Outpatient (CLI) | payer MEDICARE, SELFPAY ==
--- NOTE | ~2025-04-05 | MM_ITS ---
EXAMINATION: MM screening [facility] BI w alvin HISTORY: Screening TECHNIQUE: Craniocaudal and mediolateral oblique 3-D tomosynthesis images were obtained and synthetic 2-D images were generated. CAD analysis was submitted and interpreted. COMPARISON: Comparison to multiple prior studies sequentially, with oldest reviewed study dated 11/14/2019. BREAST PARENCHYMAL COMPOSITION: Not dense: There are scattered areas of fibroglandular density. FINDINGS: There is no evidence of suspicious mass, calcification, or architectural distortion to suggest malignancy in either breast. There has been no suspicious interval change. IMPRESSION: 1. No mammographic evidence of malignancy. 2. Recommend routine screening mammography in one year. BI-RADS Category 1: Negative Reviewed, dictated and finalized at location B. MACHINE TENDER
--- OUTSIDE RECORDS SUMMARY | 2025-04-05 10:14 | XMS_ITS | Clinical Summary ---
Author Organization [facility] Address [address] [place] [address] Care Team Providers Care Gig Tender Name Role Phone Marisel Gao MD Unavailable [phone] Sebas Santos DO Unavailable [phone] Rhea Cotter DO Primary Care Provider [phone] Source Comments [facility],non-owned Affiliates and Associated Physician Practices is amultiple site organization consisting of ambulatory clinics and hospital sitesin [place], [place], [place] and [place]. This disclosure is being madepursuant to the Care Everywhere program and may not contain all information available regarding this patient. Last updated 18.[facility] Allergies No known active allergies Medications * Be aware that medications may not be up to date on this document. Alwaysverify current medications with the patient. 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 Not on file Not on fi le Last Filed Vital Signs Vital Sign Reading Time Taken Comments Blood Pressure 114/76 04/23/2023 12:11 PM STEEL WHEEL ENGRAVER Pulse - - Temperature - - Respiratory Rate - - Oxygen Saturation - - Inhaled Oxygen Concentration - - Weight 69.9 kg (154 lb) 04/23/2023 12:11 PM STEEL WHEEL ENGRAVER Height 157.5 cm (5' 2) 04/23/2023 12:11 PM STEEL WHEEL ENGRAVER Body Mass Index 28.17 04/23/2023 12:11 PM STEEL WHEEL ENGRAVER Plan of Treatment Upcoming Encounters Date Type Department Care Team (Late st Contact Info) Description 05/08/2025 1:30 PM STEEL WHEEL ENGRAVER Office Visit [facility] - DIRECTOR OF CLINICAL TRIALS [address] [facility], [address] [place] [phone] Marisel Gao MD [address] [place] [phone] Health Maintenance Due Date Last Done Comments [...] DIABETES 04/23/2023 8 (Done Outside Per Report) DEPRESSION SCREENING 05/24/2024 04/23/2023 MEDICARE AWV CALENDAR YEAR 2024 DTAP/TDAP/TD VACCINES (2 - Td or Tdap) 06/24/2024 06/24/2014 COVID-19 VACCINE ( - season) 2025 INFLUENZA VACCINE (#1) 2025 6, 02/21/2015, 02/21/2014 MAMMOGRAM 01/25/2025 01/26/2024, 0905/2022, 12/24/2021, Additional history exists BONE DENSITY TESTING [...] Most Recently Relevant to Health Maintenance Insurance [facility] MANAGED MEDICARE ADV [facility] MANAGED MEDICARE ADV [employer] MANAGED MEDICARE ADV Care Teams Gig Tender Relationship Specialty Start Date End Date Rhea Cotter DO [address] [facility] [address] [place] [phone] PCP - General Family Medicine 04/23/23 Marisel Gao MD Slitter Creaser Slotter Operator Obstetrics and Gynecology 01/06/11 Sebas Santos DO [address] [place] [address] Feather Baler Gastroenterology 04/11/14
--- OUTSIDE RECORDS SUMMARY | 2025-04-05 10:14 | XMS_ITS | Encounter Summary ---
Author Organization [facility] Address [address] [place] [address] Care Team Providers Care Range Rider Name Role Phone Unavailable Primary Care Provider Unavailabl e Encounter Details Date Type Department Care Team (Latest Contact Info) Description 03/16/2005 Outpatient Historical HIS CARD SEED PELLETER Alon Tellez MD [address] [facility] [address] [place] [address] CHEST PAIN NEC (Primary Dx) Social History Tobacco Use Types Packs/Day Years Used Date Smoking Tobacco: Never Assessed Comments Unknown Sex and Gender Information Value Date Recorded Sex Assigned at Not on file Legal Sex Female 2:46 AM EVALUATION MANAGER Gender Identity Not on file Sexual Orientation [...] HEMATOLOGY ORDERABLES Final Result Performing Organization Address City/[facility] de Phone Number INTERFACE SYSTEM Refer to [...] HEMATOLOGY ORDERABLES Final Result Performing Organization Address City/[facility] Co de Phone Number INTERFACE SYSTEM Refer [...] HEMATOLOGY ORDERABLES Final Result Performing Organization Address [facility] Phone Number INTERFACE SYSTEM Refer to clinic/hospital [...] patients with mechanical heart valves or post [place]. Pediatric (12 years and under): 1.5 - [...] HEMATOLOGY ORDERABLES Final Result Performing Organization Address [facility] Phone Number INTERFACE SYSTEM Refer to clinic/hospital [...]
--- OUTSIDE RECORDS SUMMARY | 2025-04-05 10:14 | XMS_ITS | Clinical Summary ---
Author Organization [facility] Address [address] [address] Phone Care Team Providers Care Extractor Machine Operator Name Role Phone Ryan Low MD Primary Care Provider [phone] Social History Tobacco Use Types Packs/Day Years Used Date Smoking Tobacco: Never Assessed Comments Unknown Sex and Gender Information Value Date Recorded Sex Assigned at Not on file Legal Sex Female 12:39 AM CDT Gender Identity Not on file Sexual Orientation Not on file Plan of Treatment Health Maintenance Due Date Last Done Comments Hepatitis C Virus (HCV) Screening 1955 TdaP Immunization 1954 Cologuard 1999 Immunochemical Fecal Occult Blood 1999 Pneumococcal Immunization (5 0+ years) (1 of 1 - PCV) 2004 Zoster Immunization (1 of 2) 2004 Influenza Immunization (#1) 2025 SARS-COV-2 Immunization ( - season) 2025 Colonoscopy 02/25/2025 02/26/2020 Colorectal Cancer Screening 02/25/2025 Respiratory Syncytial Virus (RSV) Immunization (Adult) (1 - 1-dose 75+ series) 2029 Hepatitis B Immunization Aged Out No longer eligible based on patient's age to complete this topic Human Papillomavirus (HPV) Immunization Aged Out No longer eligible b ased on patient's age to complete this topic [...] Recently Relevant to Health Maintenance Care Teams Extractor Machine Operator Relationship Specialty Start Date End Date Ryan Low MD [address], [address] [place], [place] [id number] PCP - General Internal Medicine 07/26/19
--- OUTSIDE RECORDS SUMMARY | 2025-04-05 10:14 | XMS_ITS | Clinical Summary ---
Author Organization [facility] Address [address] [facility] Attn: Epic Prelude ADT [place] [address] Care Team Providers Care Script Manager Name Role Phone Unavailable Primary Care Provider Unavailabl e Social History Tobacco Use Types Packs/Day Years Used Date Smoking Tobacco: Never Assessed Comments Unknown Sex and Gender Information Value Date Recorded Sex Assigned at Not on file Legal Sex Female 2:46 AM BODY JOINER Gender Identity Not on file Sexual Orientation [...] 2004 OSTEOPOROSIS SCREENING 2019 INFLUENZA VACCINE (#1) 2024 RSV VACCINE (60+ or ) (1 - 1-dose 75+ series) 2029
== END 2025-04-05 09:36 | disposition home or self-care (01) ==
LOC: ANHFOHIMG 09:39
PROVIDERS: PCP Family Medicine
DX: Z12.31 Encounter for screening mammogram for malignant neoplasm of breast (principal)
CPT/HCPCS: 77063; 77067

== ENCOUNTER 2025-04-25 00:27 | Day surgery (SDC) | payer MEDICARE, SELFPAY ==
[2025-04-04 12:25] VITALS: BMI 29.2
--- OUTSIDE RECORDS SUMMARY | 2025-04-25 00:30 | XMS_ITS | Clinical Summary ---
Author Organization [facility] Address [address] [place] [place] [address] Care Team Providers Care Chemistry Manager Name Role Phone Marisel Gao MD Unavailable [phone] Sebas Santos DO Unavailable [phone] Rhea Cotter DO Primary Care Provider [phone] Source Comments [facility],non-owned Affiliates and Associated Physician Practices is amultiple site organization consisting of ambulatory clinics and hospital sitesin [place], [place], [place] and [place]. This disclosure is being madepursuant to the Care Everywhere program and may not contain all information available regarding this patient. Last updated 18.[facility] Allergies No known active allergies Medications * Be aware that medications may not be up to date on this document. Alwaysverify current medications with the patient. 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 Not on file Not on fi le Last Filed Vital Signs Vital Sign Reading Time Taken Comments Blood Pressure 114/76 04/23/2023 12:11 PM SEO CONSULTANT Pulse - - Temperature - - Respiratory Rate - - Oxygen Saturation - - Inhaled Oxygen Concentration - - Weight 69.9 kg (154 lb) 04/23/2023 12:11 PM SEO CONSULTANT Height 157.5 cm (5' 2) 04/23/2023 12:11 PM SEO CONSULTANT Body Mass Index 28.17 04/23/2023 12:11 PM SEO CONSULTANT Plan of Treatment Upcoming Encounters Date Type Department Care Team (Late st Contact Info) Description 05/08/2025 1:30 PM SEO CONSULTANT Office Visit [facility] - [address] [facility], [address] [place] [phone] Marisel Gao MD [address] [place] [phone] Health Maintenance Due Date Last Done [...] Most Recently Relevant to Health Maintenance Insurance [facility] MANAGED MEDICARE ADV [facility] MANAGED MEDICARE ADV [employer] MANAGED MEDICARE ADV Care Teams Chemistry Manager Relationship Specialty Start Date End Date Rhea Cotter DO [address] [facility] [address] [place] [phone] PCP - General Family Medicine 04/23/23 Marisel Gao MD Death Claim Clerk Obstetrics and Gynecology 01/06/11 Sebas Santos DO [address] [place] [address] Bench Carpenter Gastroenterology 04/11/14
--- OUTSIDE RECORDS SUMMARY | 2025-04-25 00:30 | XMS_ITS | Encounter Summary ---
Author Organization [employer] Address [address] [place] [address] Care Team Providers Care Box Worker Name Role Phone Unavailable Primary Care Provider Unavailabl e Encounter Details Date Type Department Care Team (Latest Contact Info) Description 03/16/2005 Outpatient Historical HIS CARD PROJECTION ENGINEER Alon Tellez MD [address] [facility] [address] [place] [address] CHEST PAIN NEC (Primary Dx) Social History Tobacco Use Types Packs/Day Years Used Date Smoking Tobacco: Never Assessed Comments Unknown Sex and Gender Information Value Date Recorded Sex Assigned at Not on file Legal Sex Female 2:46 AM COMMERCIAL LINES ACCOUNT MANAGER Gender Identity Not on file Sexual [...] HEMATOLOGY ORDERABLES Final Result Performing Organization Address City/[facility] de Phone Number INTERFACE [...] HEMATOLOGY ORDERABLES Final Result Performing Organization Address City/[facility] Co de Phone Number INTERFACE SYSTEM [...] HEMATOLOGY ORDERABLES Final Result Performing Organization Address [facility] Phone Number INTERFACE SYSTEM Refer to clinic/hospital [...] patients with mechanical heart valves or post [place]. Pediatric (12 years and under): 1.5 - [...] HEMATOLOGY ORDERABLES Final Result Performing Organization Address [facility] Phone Number INTERFACE SYSTEM Refer to clinic/hospital [...]
--- OUTSIDE RECORDS SUMMARY | 2025-04-25 00:30 | XMS_ITS | Clinical Summary ---
Author Organization [employer] Address [address] [facility] Attn: Epic Prelude ADT JASVIR BRADLEY [address] Care Team Providers Care Silo Tender Name Role Phone Unavailable Primary Care Provider Unavailabl e Social History Tobacco Use Types Packs/Day Years Used Date Smoking Tobacco: Never Assessed Comments Unknown Sex and Gender Information Value Date Recorded Sex Assigned at Not on file Legal Sex Female 2:46 AM SOFTWARE TOOLS DEVELOPER Gender Identity Not on file Sexual Orientation [...]
[2025-04-25 08:17] VITALS: BP 143/80; PULSE 78; RESP 18; TEMP 36.3; O2SAT 98
[2025-04-25] MEDS: LACTATED RINGERS 1,000 ML 150 ML IV CONT (08:28)
--- NOTE | 2025-04-25 08:47 | WPDANESEPPF ---
Anes - Initial Pre Proc Eval Procedure: Operation Date: 04/25/25 09:30 Proposed Procedures p Screening Colonoscopy - Wiley Bethea MD Date/Time: 04/25/25 08:47 Surgeon: Wiley Bethea MD Pre Op Diagnosis: Positive Cologuard/screening Patient Data Age: 69 Gender: F Height: 1.57 m Weight: 71.2 kg Last Vital Signs Temp 36.3 C L 04/25/25 08:17 Pulse 78 04/25/25 08:17 Resp 18 04/25/25 08:17 BP 143/80 H 04/25/25 08:17 Pulse Ox 98 04/25/25 08:17 O2 Del Method Room Air 04/25/25 08:17 Allergies Allergy/AdvReac Type Severity Reaction Status Date / Time No Known Allergies Allergy Unknown Verified 04/25/25 08:16 Home Medications ?Medication ?Instructions ?Recorded ?Confirmed ?Type omega-3 fatty acids 1,000 mg 1,000 mg PO BID 07/05/19 04/04/25 History capsule (Fish Oil Concentrate) Lactobacillus 1 cap PO .four times a week 07/01/20 04/04/25 History acidophilus-Bifidobac.animalis 10 billion cell capsule (Digestive Probiotic) cholecalciferol (vitamin D3) 125 15,000 unit PO .twice a week 07/01/20 04/04/25 History mcg (5,000 unit) capsule loratadine 10 mg tablet (Claritin) 10 mg PO DAILY PRN allergic 03/04/22 04/04/25 History symptoms nutritional supplement-fiber oral 1 ea PO DAILY 03/04/22 04/04/25 History liquid zinc 50 mg tablet 50 mg PO 4XW 03/04/22 04/04/25 History Calcium Citrate 650 mg PO DAILY 05/27/23 04/04/25 History magnesium oxide 400 mg PO DAILY 10/13/23 04/04/25 History levothyroxine 88 mcg tablet See Rx Instructions .Route 07/17/24 04/04/25 Rx .COMPLEX #100 tabs lisinopril 10 mg tablet See Rx Instructions .Route 07/31/24 04/04/25 Rx .COMPLEX #100 tabs rosuvastatin 10 mg tablet 10 mg PO DAILY #75 tabs 10/26/24 04/04/25 Rx Patient hx anesthesia problems: none Family hx anesthesia problems: none Results Review: All pre-operative results and documents have been reviewed as part of the pre-operative evaluation. [facility] Past Medical History Medical History (Updated 12/18/24 @ 14:51 by Rhea Cotter DO) Premature ventricular contraction Acquired hypothyroidism Hx of bronchogenic malignancy Mixed hyperlipidemia Surgical History Surgical History (Updated 04/25/25 @ 08:48 by Ranjit Tavera DO) Hx of pneumonectomy left S/P cubital tunnel release History of carpal tunnel release Hx of tonsillectomy Family History Family History Grandparent Family history of rheumatoid arthritis Family history of malignant neoplasm of breast Father Hypertension Sibling Carcinoma of colon Thyroid disorder Mother Thyroid disorder Social History Social History Smoking status: Never smoker Alcohol intake: never Substance use: never Substance use type: does not use Lack of Transportation: No Lack of Food: Never True Current Housing: I Have Housing Concerned About Future Housing: No Difficulty Paying Gas/Electric Bills: No Difficulty Paying for Meds: No Currently Unemployed: No Education: Associate Degree Difficulty w/ Childcare or Family Care: No Living arrangements: with family Gender identity (if verbalized by the patient): Female Spiritual care concerns: No Anes - Eval Final PreProcedure Day of Procedure 04/25/25 08:47 Patient weight: overweight Heart: regular rate and rhythm Lungs: clear to auscultation Airway: Mallampati scale class II Neurological: alert and oriented Last oral intake: >/= 8 hours ASA classification: III Emergent: no Anesthetic plan: proceed Anesthesia type and monitoring: general GIVS and standard monitoring Results Review: All pre-operative results and documents have been reviewed as part of the pre-operative evaluation. Informed Consent: The patient's anesthetic plan and its attendant risks and benefits were discussed with the patient/family/POA. Questions were solicited and answers provided to the satisfaction of the patient/family/POA.
--- NOTE | 2025-04-25 09:06 | PM.IMHP2 ---
H&P: HPI History of Present Illness Date/Time: 04/25/25 09:06 Chief Complaint: History of colon polyps Narrative: The patient has a history of colonic polyps, the last colonoscopy was 5 years ago. Review of Systems Review of Systems: All systems reviewed & are unremarkable except as noted in HPI and below PMFSH Past Medical History Medical History (Updated 04/25/25 @ 09:06 by Wiley Bethea MD) Premature ventricular contraction Acquired hypothyroidism Hx of bronchogenic malignancy Mixed hyperlipidemia Surgical History Surgical History (Updated 04/25/25 @ 08:48 by Ranjit Tavera DO) Hx of pneumonectomy left S/P cubital tunnel release History of carpal tunnel release Hx of tonsillectomy Family History Family History Grandparent Family history of rheumatoid arthritis Family history of malignant neoplasm of breast Father Hypertension Sibling Carcinoma of colon Thyroid disorder Mother Thyroid disorder Social History Social History Smoking status: Never smoker Alcohol intake: never Substance use: never Substance use type: does not use Lack of Transportation: No Lack of Food: Never True Current Housing: I Have Housing Concerned About Future Housing: No Difficulty Paying Gas/Electric Bills: No Difficulty Paying for Meds: No Currently Unemployed: No Education: Associate Degree Difficulty w/ Childcare or Family Care: No Living arrangements: with family Gender identity (if verbalized by the patient): Female Spiritual care concerns: No Meds Home Medications and Allergies Home Medications ?Medication ?Instructions ?Recorded ?Confirmed ?Type omega-3 fatty acids 1,000 mg 1,000 mg PO BID 07/05/19 04/04/25 History capsule (Fish Oil Concentrate) Lactobacillus 1 cap PO .four times a week 07/01/20 04/04/25 History acidophilus-Bifidobac.animalis 10 billion cell capsule (Digestive Probiotic) cholecalciferol (vitamin D3) 125 15,000 unit PO .twice a week 07/01/20 04/04/25 History mcg (5,000 unit) capsule loratadine 10 mg tablet (Claritin) 10 mg PO DAILY PRN allergic 03/04/22 04/04/25 History symptoms nutritional supplement-fiber oral 1 ea PO DAILY 03/04/22 04/04/25 History liquid zinc 50 mg tablet 50 mg PO 4XW 03/04/22 04/04/25 History Calcium Citrate 650 mg PO DAILY 05/27/23 04/04/25 History magnesium oxide 400 mg PO DAILY 10/13/23 04/04/25 History levothyroxine 88 mcg tablet See Rx Instructions .Route 07/17/24 04/04/25 Rx .COMPLEX #100 tabs lisinopril 10 mg tablet See Rx Instructions .Route 07/31/24 04/04/25 Rx .COMPLEX #100 tabs rosuvastatin 10 mg tablet 10 mg PO DAILY #75 tabs 10/26/24 04/04/25 Rx Allergies Allergy/AdvReac Type Severity Reaction Status Date / Time No Known Allergies Allergy Unknown Verified 04/25/25 08:16 Vital Signs Vital Signs - 24 hr 04/25/25 08:17 Temperature 97.4 F L Pulse Rate 78 Respiratory Rate 18 Blood Pressure 143/80 H Pulse Oximetry 98 Oxygen Delivery Room Air Exam Const: General: cooperative and healthy appearing Resp: Effort & Inspection: normal respiratory effort and able to speak in complete sentences Auscultation: clear to auscultation bilaterally Cardio: Rate: regular rate Rhythm: regular rhythm GI: Inspection: normal to inspection GI Palp: No No hepatosplenomegaly present Auscultation: normal bowel sounds Rectal Exam: deferred Skin: General skin exam: normal color Psych: Appearance: grossly normal Mental Status: mental status grossly normal Assessment and Plan Assessment and plan (1) History of colonic polyps: Code(s): Z86.0100 - Personal history of colon polyps, unspecified Status: Acute Assessment and Plan: The patient is deemed a good candidate for the procedure. Consent signed. Will proceed. Prior Studies I have reviewed the following patient records and this information was taken into consideration when formulating the assessment and plan.: previous labs, previous ER visits, previous hospitalizations and previous clinic visits
[2025-04-25] MEDS: SIMETHICONE ORAL SUSPENSION 20 MG/0.3 ML 30 ML BOTTLE 0.6 ML IRRIGATION (09:22)
[2025-04-25 09:32] VITALS: BP 83/53; PULSE 68; RESP 17; O2SAT 97
[2025-04-25 09:42] VITALS: BP 94/52; PULSE 66; RESP 22; O2SAT 97
[2025-04-25 09:52] VITALS: BP 107/74; PULSE 62; RESP 20; O2SAT 97
== END 2025-04-25 10:02 | disposition home or self-care (01) ==
PROVIDERS: PCP Family Medicine; Referring Provider Family Medicine; Visit Provider Internal Medicine Gastroenterology
PROC: 0DJD8ZZ Inspection of Lower Intestinal Tract, Via Natural or Artificial Opening Endoscopic (ICD-10-PCS; CPT 45378; principal; 2025-04-25 09:30)
DX: Z12.11 Encounter for screening for malignant neoplasm of colon (principal); K64.8 Other hemorrhoids; R19.5 Other fecal abnormalities; Z86.0100 Personal history of colon polyps, unspecified
CPT/HCPCS: G0105; J2704; J7120

== ENCOUNTER 2025-05-08 07:50 | Outpatient (CLI) | payer MEDICARE, SELFPAY ==
--- OUTSIDE RECORDS SUMMARY | 2025-05-08 07:53 | XMS_ITS | Clinical Summary ---
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
--- OUTSIDE RECORDS SUMMARY | 2025-05-08 07:53 | XMS_ITS | Encounter Summary ---
Author Organization [employer] Address 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 Gender Identity Not on file Sexual Orientation [...] HEMATOLOGY ORDERABLES Final Result Performing Organization Address City/[facility] de Phone Number INTERFACE SYSTEM [...] ORDERABLES Final Result Performing Organization Address [facility] de Phone Number INTERFACE SYSTEM [...] unfractionated heparin 03/16/2005 12:2 5 PM CDT us Alon Mathews MD HEMATOLOGY ORDERABLES Final Result Performing Organization Address [facility] Phone Number INTERFACE SYSTEM Refer to [...] patients with mechanical heart valves or post [place]. Pediatric (12 years and under): 1.5 - [...] ORDERABLES Final Result Performing Organization Address [facility] Phone Number INTERFACE SYSTEM Refer to [...]
--- OUTSIDE RECORDS SUMMARY | 2025-05-08 07:53 | XMS_ITS | Clinical Summary ---
Author Organization [facility] Address [address] [address] Phone Care Team Providers Care 3D Modeler Name Role Phone Ryan Low MD Primary Care Provider [phone] Social History Tobacco Use Types Packs/Day Years [...] Recently Relevant to Health Maintenance Care Teams 3D Modeler Relationship Specialty Start Date End Date Ryan Low MD [address], [address] [place], [place] [id number] PCP - General Internal Medicine 07/26/19
--- OUTSIDE RECORDS SUMMARY | 2025-05-08 07:53 | XMS_ITS | Clinical Summary ---
Author Organization [facility] [employer] Address [address] [facility] [place] [address] Care Team Providers Care Boat Outfitting Supervisor Name Role Phone Marisel Gao MD Unavailable [phone] Sebas Santos DO Unavailable [phone] Rhea Cotter DO Primary Care Provider [phone] Source Comments [facility] [employer],non-owned Affiliates and Associated Physician Practices is amultiple site organization consisting of ambulatory clinics and hospital sitesin [place], [place], [place] and [place]. This disclosure is being madepursuant to the Care Everywhere program and may not contain all information available regarding this patient. Last updated 18.[facility] [employer] Allergies No known active allergies Medications * Be aware that medications may not be up to date on this document. Alwaysverify current medications with the patient. rosuvastatin (CRESTOR) 10 MG tablet Take 1 (one) tablet by mouth once daily 5 times weekly Active Denver-3 Fatty Acids (FISH OIL DOUBLE STRENGTH) 1200 [...] Active lisinopril (Prinivil; Zestril) 10 MG tablet 3 Active Magnesium 400 MG Active Active Problems [...] Hypothyroidism Dyslipidemia Insomnia Hypovitaminosis D Overview (03/31/2013): 2012: Vitamin d = 37 Immunizations Immunization Administration [...] Comments Brother 1 Avtar Brother 2 Father MD Mother back surgery Paternal Grandmother Sister Alive [...] Date Recorded Patient Health Questionnaire-2 Score 0 05/02/2025 Comments No Sex and Gender Information Value Date Recorded Sex Assigned at Not on file Legal Sex Female 6:41 AM INDUSTRIAL FABRIC CUTTER Gender Identity Not on file Sexual Orientation Not on file 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[employer] Not on file Not on file Not on fi le Last Filed Vital Signs Vital Sign Reading Time Taken Comments Blood Pressure 114/76 04/23/2023 12:11 PM INDUSTRIAL FABRIC CUTTER Pulse - - Temperature - - Respiratory Rate - - Oxygen Saturation - - Inhaled Oxygen Concentration - - Weight 69.9 kg (154 lb) 04/23/2023 12:11 PM INDUSTRIAL FABRIC CUTTER Height 157.5 cm (5' 2) 04/23/2023 12:11 PM INDUSTRIAL FABRIC CUTTER Body Mass Index 28.17 04/23/2023 12:11 PM INDUSTRIAL FABRIC CUTTER Plan of Treatment Upcoming Encounters Date Type Department Care Team (Late st Contact Info) Description 05/08/2025 1:30 PM INDUSTRIAL FABRIC CUTTER Office Visit [facility] - [employer] C[employer] [facility] [address] [place] [address], [address] [place] [phone] Marisel Gao MD [address] [place] [id number] Health Maintenance Due Date Last Done Comments COLOGUARD (AGES 45-75) - COLON CA SCREENING 1955 11/20/[address] COLONOGRAPHY - COLON [...] - season) 2025 INFLUENZA VACCINE (#1) 2025 , 02/22/2016, 02/21/2015, Additional history exists MAMMOGRAM 01/25/2025 01/26/2024, 0905/2022, 12/24/2021, Additional history [...] Most Recently Relevant to Health Maintenance Insurance MANAGED MEDICARE ADV Care Teams Boat Outfitting Supervisor Relationship Specialty Start Date End Date Rhea Cotter DO [address] [facility] [address] [address] [place] [address] PCP - General Family Medicine 04/23/23 Marisel Gao MD Dry House Tender Obstetrics and Gynecology 01/06/11 Sebas Santos DO [address] [place] [address] Beef Pusher Gastroenterology 04/11/14
[2025-05-08 08:20] LABS: Hematocrit 44.4 % (37.0-47.0); Hemoglobin 14.1 g/dL (12.0-15.0); Immature Granulocyte Percent A 0.3 % (0-0.5); Lymphocytes Absolute Auto 2.15 K/mm3 (0.9-3.2); Mean Corpuscular HGB Conc 31.8 g/dl (32-36); Mean Corpuscular Hemoglobin 29.7 pg (26-34); Mean Corpuscular Volume 93.7 fl (80-100); Nucleated Red Blood Cells Absolute Auto 0.000 K/mm3 (0.0-0.012); Nucleated Red Blood Cells Perc 0.0 % (0.0-0.2); Platelet Count Result 246 k/mm3 (150-375); Red Blood Count 4.74 M/mm3 (4.2-5.4); White Blood Count 6.0 K/mm3 (4.5-10.0)
[2025-05-08 08:48] LABS: Alanine Aminotransferase 22 U/L (6-35); Albumin Level 4.5 g/dL (3.5-5.1); Alkaline Phosphatase 61 U/L (38-126); Anion Gap 4 mmol/L (4-12); Aspartate Amino Transferase 31 U/L (14-36); Bilirubin,Total 0.6 mg/dL (0.2-1.3); Blood Urea Nitrogen 20 mg/dL (7-17); Calcium 9.7 mg/dL (8.4-10.2); Carbon Dioxide 30 mmol/L (22-30); Chloride 103 mmol/L (98-107); Cholesterol 205 mg/dL (0-200); Estimated Glomerular Filt Rate > 60; Glucose 98 mg/dL (65-110); HDL Direct 62 mg/dL; Potassium 4.3 mmol/L (3.4-5.0); Sodium 137 mmol/L (137-145); Total Protein 7.9 g/dL (6.3-8.2); Triglycerides 119 mg/dL (<150)
[2025-05-08 09:24] LABS: Thyroid Stimulating Hormone 0.648 uIU/mL (0.465-4.680)
[2025-05-08 09:50] LABS: Free T4 Free Thyroxine 1.38 ng/dL (0.78-2.19)
[2025-05-08 09:59] LABS: Hemoglobin A1C 5.6 % (<5.7)
== END 2025-05-08 07:51 | disposition home or self-care (01) ==
PROVIDERS: PCP Family Medicine; Visit Provider Family Medicine
DX: E78.2 Mixed hyperlipidemia (principal); I10 Essential (primary) hypertension; E55.9 Vitamin D deficiency, unspecified; E03.9 Hypothyroidism, unspecified; R73.9 Hyperglycemia, unspecified
CPT/HCPCS: 36415; 80053; 80061; 82306; 83036; 84439; 84443; 85025